=== PATIENT | male | born 1985 | race Caucasian/White ===

== ENCOUNTER 2016-08-21 | Outpatient (CLI) | END 2016-08-21 23:31 | CPT/HCPCS: A0425; A0428 ==

== ENCOUNTER 2016-08-21 | Outpatient (CLI) | END 2016-08-21 11:30 | disposition critical access hospital (66) | CPT/HCPCS: A0425; A0429 ==

== ENCOUNTER 2016-08-21 12:07 | Emergency (ER) | payer MEDICAID ==
[2016-08-21] MEDS ORDERED: HYDROcod/ACETAM 5/325 MG TABLET PO STA ×2 (13:58→20:53)
[2016-08-21] MEDS ORDERED: ONDANSETRON ODT 4 MG TABLET TL STA (13:58)
[2016-08-21] MEDS ORDERED: HYDROcod/ACETAM 5/325 MG TABLET ONE ×2 (14:05→20:55)
[2016-08-21] MEDS ORDERED: ONDANSETRON ODT 4 MG TABLET ONE (14:05)
[2016-08-21] MEDS ORDERED: CIPROFLOXACIN 250 MG TABLET PO STA (15:47)
[2016-08-21] MEDS ORDERED: IBUPROFEN 600 MG TABLET PO STA (20:53)
[2016-08-21] MEDS ORDERED: IBUPROFEN 600 MG TABLET PO ONE (20:55)
== END 2016-08-21 23:30 ==
DX: F20.0 Paranoid schizophrenia (principal); N30.01 Acute cystitis with hematuria; T43.4X6A Underdosing of butyrophenone and thiothixene neuroleptics, initial encounter; T43.596A Underdosing of other antipsychotics and neuroleptics, initial encounter; Z91.128 Patient's intentional underdosing of medication regimen for other reason; F32.9 Major depressive disorder, single episode, unspecified; F90.9 Attention-deficit hyperactivity disorder, unspecified type; Z87.11 Personal history of peptic ulcer disease
CPT/HCPCS: 36415; 74176; 80053; 80306; 80320; 81001; 83690; 85025; 87086; 99284; A9270; Q0162

== ENCOUNTER 2016-10-22 22:28 | Outpatient (CLI) | payer MEDICAID | END 2016-10-22 22:29 | disposition home or self-care (01) | DX: R31.9 Hematuria, unspecified (principal) ==

== ENCOUNTER 2016-11-16 15:04 | Emergency (ER) | payer MEDICAID ==
[2016-11-16] MEDS ORDERED: ALBUTEROL NEB 2.5 MG/3 ML INH STA (15:28)
[2016-11-16] MEDS ORDERED: oxyCOD/ACETAMIN 5 MG/325 MG TABLET PO STA (15:28)
[2016-11-16] MEDS ORDERED: SULFAMETH/TRIMETH DS 800/160 MG TABLET PO STA (15:28)
[2016-11-16] MEDS ORDERED: DEXAMETHASONE 10 MG/ML VIAL PO STA (15:28)
[2016-11-16] MEDS ORDERED: IBUPROFEN 800 MG TABLET PO STA (15:29)
[2016-11-16] MEDS ORDERED: DOXYCYCLINE 100 MG TABLET PO STA (15:30)
[2016-11-16] MEDS ORDERED: IBUPROFEN 800 MG TABLET PO ONE (15:34)
[2016-11-16] MEDS ORDERED: oxyCOD/ACETAMIN 5 MG/325 MG TABLET PO ONE (15:34)
[2016-11-16] MEDS ORDERED: DOXYCYCLINE 100 MG TABLET PO ONE (15:35)
[2016-11-16] MEDS ORDERED: DEXAMETHASONE 10 MG/ML VIAL ONE (15:35)
[2016-11-16] MEDS ORDERED: CHERRY SYRUP 10 ML UDC PO ONE (15:35)
[2016-11-16] MEDS ORDERED: ALBUTEROL NEB 2.5 MG/3 ML INH ONE (15:43)
== END 2016-11-16 16:15 | disposition home or self-care (01) ==
DX: S20.219A Contusion of unspecified front wall of thorax, initial encounter (principal); W11.XXXA Fall on and from ladder, initial encounter; Y92.019 Unspecified place in single-family (private) house as the place of occurrence of the external cause; J06.9 Acute upper respiratory infection, unspecified; H60.501 Unspecified acute noninfective otitis externa, right ear; J45.909 Unspecified asthma, uncomplicated; Z87.11 Personal history of peptic ulcer disease
CPT/HCPCS: 71020; 93005; 93010; 94640; 99283; 99284; A9270; J7613

== ENCOUNTER 2017-01-05 01:30 | Outpatient (CLI) | payer MEDICAID | END 2017-01-05 01:31 | disposition critical access hospital (66) | LOC: EMS 01:30 | PROVIDERS: ATTEND Surgery | DX: Z04.6 Encounter for general psychiatric examination, requested by authority (principal); R45.851 Suicidal ideations | CPT/HCPCS: A0425; A0429 ==

== ENCOUNTER 2017-01-05 01:59 | Emergency (ER) | payer MEDICAID ==
[2017-01-05 02:34] LABS: BASOPHILS # (AUTO) 0.2 10^3/uL (0.0-0.1); BASOPHILS % (AUTO) 2.3 %; EOSINOPHILS # (AUTO) 0.1 10^3/uL (0.0-0.7); EOSINOPHILS % (AUTO) 0.6 %; HCT - HEMATOCRIT 33.3 % (42.0-52.0); HGB - HEMOGLOBIN 11.4 g/dL (14.0-18.0); LYMPHOCYTES # (AUTO) 1.4 10^3/uL (1.5-3.5); LYMPHOCYTES % (AUTO) 13.4 %; MEAN CORPUSCULAR HEMOGLOBIN 31.4 pg (27.0-31.0); MEAN CORPUSCULAR HGB CONC 34.1 g/dL (32.0-36.0); MEAN CORPUSCULAR VOLUME 91.9 fL (80.0-94.0); MEAN PLATELET VOLUME 8.5 fL (7.4-11.4); MONOCYTES # (AUTO) 0.8 10^3/uL (0.0-1.0); MONOCYTES % (AUTO) 7.7 %; NEUTROPHILS # (AUTO) 7.7 10^3/uL (1.5-6.6); RED BLOOD COUNT 3.62 10^6/uL (4.70-6.10); RED CELL DISTRIBUTION WIDTH 13.8 % (12.0-15.0); UNCORRECTED WHITE BLOOD COUNT 10.2 x10^3/uL; WHITE BLOOD COUNT 10.2 x10^3/uL (4.8-10.8)
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
[2017-01-05] MEDS ORDERED: WATER FOR INJECTION,STERILE 10 ML ONE (02:36)
[2017-01-05] MEDS ORDERED: OLANZapine 10 MG VIAL IM ONE (02:36)
[2017-01-05 02:41] LABS: ALBUMIN/GLOBULIN RATIO 1.8 (1.0-2.2); BILIRUBIN,TOTAL 2.2 mg/dL (0.2-1.0); BUN - BLOOD UREA NITROGEN 26 mg/dL (6-20); CALCIUM 9.2 mg/dL (8.5-10.3); CARBON DIOXIDE - CO2 21 mmol/L (21-32); CHLORIDE 101 mmol/L (101-111); GFR - MDRD 86 (>89); GLUCOSE 81 mg/dL (70-100); LIPASE 24 U/L (22-51); POTASSIUM 3.2 mmol/L (3.5-5.0); SALICYLATE < 6.0 mg/dL; SODIUM 137 mmol/L (135-145); TOTAL PROTEIN 7.2 g/dL (6.7-8.2)
[2017-01-05 02:54] LABS: ACETAMINOPHEN < 10 ug/mL (10-30)
[2017-01-05] MEDS: OLANZapine 10 MG VIAL IM ONE (03:00)
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
[2017-01-05] MEDS ORDERED: OLANZapine ODT 5 MG TABLET TL ONE ×2 (10:24→13:18)
[2017-01-05] MEDS: OLANZapine ODT 5 MG TABLET TL ONE ×2 (10:26→13:20)
[2017-01-05] MEDS: POTASSIUM CHLORIDE 20 MEQ TABLET PO STA (12:04)
[2017-01-05] MEDS ORDERED: POTASSIUM CHLORIDE 20 MEQ TABLET PO ONE (12:05)
[2017-01-05] MEDS ORDERED: LORazepam 2 MG/ML SYRINGE ONE (13:51)
[2017-01-05] MEDS: LORazepam 2 MG/ML SYRINGE IM STA (13:54)
[2017-01-05 14:59] VITALS: BP 120/63
== END 2017-01-05 15:33 ==
LOC: EDUNIT# → ED 01:59
DX: F20.9 Schizophrenia, unspecified (principal); T50.996A Underdosing of other drugs, medicaments and biological substances, initial encounter; Z91.128 Patient's intentional underdosing of medication regimen for other reason; F31.9 Bipolar disorder, unspecified; J45.909 Unspecified asthma, uncomplicated; Z87.11 Personal history of peptic ulcer disease
CPT/HCPCS: 36415; 80053; 80306; 80307; 80320; 80329; 83690; 84443; 85025; 96372; 99285

== ENCOUNTER 2017-01-05 15:36 | Outpatient (CLI) | payer MEDICAID | END 2017-01-05 15:37 | LOC: EMS 15:36 | PROVIDERS: ATTEND Surgery | DX: F29 Unspecified psychosis not due to a substance or known physiological condition (principal) | CPT/HCPCS: A0425; A0428 ==

== ENCOUNTER 2017-09-02 15:42 | Emergency (ER) | payer MEDICAID ==
[2017-09-02 16:04] VITALS: BP 124/59
--- NOTE | 2017-09-02 16:29 | ED Physician Documentation ---
History of Present Illness - Stated complaint Stated Complaint: R FOOT PAIN - Chief complaint Chief Complaint: Trauma Ext - History obtained from History obtained from: Patient - History of Present Illness Timing: Today Pain level max: 8 Pain level now: 5 Improved by: rest Worsened by: walking - Additonal information Additional information: Patient is a 32-year-old male who states that he was walking and felt a pop in his right foot. Concerned that he broke his foot. Has not taken anything for the pain. Has continued to ambulate on the foot. Review of Systems Constitutional: denies: Fever Neurologic: denies: Focal weakness, Numbness PD PAST MEDICAL HISTORY - Past Medical History Cardiovascular: None Respiratory: Asthma Neuro: None Endocrine/Autoimmune: None GI: Ulcers : None HEENT: None Psych: Schizophrenia, ADD/ADHD, Post traumatic stress disorder, Claustrophobia, Other Musculoskeletal: None Derm: None - Past Surgical History Past Surgical History: Yes General: Hiatal hernia repair Ortho: ACL reconstruction HEENT: Tonsil/Adenoidectomy Derm: Skin cancer surgery - Present Medications Home Medications: Ambulatory Orders Medication Instructions Recorded Confirmed Ibuprofen [Motrin] 800 mg PO Q8H PRN #20 tablet 09/02/17 - Allergies Allergies/Adverse Reactions: Allergies Allergy/AdvReac Type Severity Reaction Status Date / Time iodine Allergy Unknown Itching Verified 09/02/17 16:20 - Social History Does the pt smoke?: No Smoking Status: Never smoker Does the pt drink ETOH?: No Does the pt have substance abuse?: No - Immunizations Immunizations are current?: No Immunizations: TDAP >10years/unknown - POLST Patient has POLST: No PD ED PE NORMAL - Vitals Vital signs reviewed: Yes - General General: Alert and oriented X 3, No acute distress - Derm Derm: Warm and dry - Extremities Extremities: Other (R foot - mild diffuse TTP. no point tenderness. nvi) - Neuro Neuro: Alert and oriented X 3 Results - Vitals Vitals: Vital Signs - 24 hr 09/02/17 16:01 Temperature 36.5 C Heart Rate 80 Respiratory 16 Rate Blood Pressure 124/59 L O2 Saturation 97 Oxygen O2 Source Room air - Rads (name of study) R foot xray Radiology: Prelim report reviewed, EMP read contemporaneously, See rad report ( Normal foot) PD MEDICAL DECISION MAKING - ED course Complexity details: reviewed results, considered differential, d/w patient ED course: Patient with a right foot sprain. No acute fractures on x-ray. Placed in a postoperative shoe for comfort and will place on nonsteroidal anti-inflammatory medications for home. Ambulating well in the emergency department. Neurovascularly intact. Patient counseled regarding signs and symptoms for which I believe and urgent re-evaluation would be necessary. Patient with good understanding of and agreement to plan and is comfortable going home at this time This document was made in part using voice recognition software. While efforts are made to proofread this document, sound alike and grammatical errors may occur. Departure - Departure Disposition: Home, Self Care Clinical Impression: Foot sprain Qualifiers: Encounter type: initial encounter Laterality: right Qualified Code(s): S93.601A - Unspecified sprain of right foot, initial encounter Condition: Good Instructions: ED Sprain Foot Follow-Up: Cherelle Vieyra PA-C [Primary Care Provider] - Within 1 week Prescriptions: Ibuprofen [Motrin] 800 mg PO Q8H PRN #20 tablet PRN Reason: PAIN &/OR FEVER Comments: Your x-ray is normal today. Wear the postoperative shoe as needed for comfort. Return if you worsen. Discharge Date/Time: 09/02/17 16:48
[2017-09-02] MEDS ORDERED: IBUPROFEN 800 MG TABLET PO STA (16:36)
--- NOTE | 2017-09-02 17:53 | XRAY Preliminary Report ---
Exam: XR FOOT 3 VIEW RT IMPRESSION: Soft tissue swelling without fracture [facility] SITE ID: [id number]
--- NOTE | 2017-09-02 17:53 | XRAY Report ---
EXAM: RIGHT FOOT RADIOGRAPHY EXAM DATE: 09/02/2017 04:32 PM. CLINICAL HISTORY: R foot pain. COMPARISON: None. TECHNIQUE: 3 views. FINDINGS: Bones: No acute fracture or destructive bony mallet. Joints: Normal. No subluxations. Soft Tissues: There is soft tissue swelling around the fifth metatarsal-phalangeal joint. IMPRESSION: Soft tissue swelling without fracture [facility] Referring Provider Line: [phone] SITE ID: [id number]
== END 2017-09-02 16:48 | disposition home or self-care (01) ==
LOC: ED 15:42
DX: S93.601A Unspecified sprain of right foot, initial encounter (principal); X58.XXXA Exposure to other specified factors, initial encounter; Y93.02 Activity, running
CPT/HCPCS: 73630; 99283; A9270

== ENCOUNTER 2017-10-29 15:33 | Outpatient (CLI) | payer MEDICAID ==
[2017-10-29 17:40] LABS: BASOPHILS % (AUTO) 0.3 %; EOSINOPHILS # (AUTO) 0.1 10^3/uL (0.0-0.7); EOSINOPHILS % (AUTO) 1.6 %; HGB - HEMOGLOBIN 11.9 g/dL (14.0-18.0); LYMPHOCYTES # (AUTO) 1.8 10^3/uL (1.5-3.5); LYMPHOCYTES % (AUTO) 31.4 %; MEAN CORPUSCULAR HEMOGLOBIN 30.3 pg (27.0-31.0); MEAN CORPUSCULAR HGB CONC 33.2 g/dL (32.0-36.0); MEAN CORPUSCULAR VOLUME 91.4 fL (80.0-94.0); MEAN PLATELET VOLUME 8.2 fL (7.4-11.4); MONOCYTES # (AUTO) 0.4 10^3/uL (0.0-1.0); MONOCYTES % (AUTO) 7.3 %; NEUTROPHILS # (AUTO) 3.4 10^3/uL (1.5-6.6); NEUTROPHILS % (AUTO) 59.4 %; PLT - PLATELET COUNT 212 10^3/uL (130-450); RED BLOOD COUNT 3.92 10^6/uL (4.70-6.10); RED CELL DISTRIBUTION WIDTH 14.1 % (12.0-15.0); WHITE BLOOD COUNT 5.7 x10^3/uL (4.8-10.8)
[2017-10-29 17:58] LABS: ALBUMIN 4.2 g/dL (3.2-5.5); ALBUMIN/GLOBULIN RATIO 1.6 (1.0-2.2); ALKALINE PHOSPHATASE 67 IU/L (42-121); ALT ALANINE AMINOTRANSFERASE 19 IU/L (10-60); AST ASPARTATE AMINOTRANSFERASE 22 IU/L (10-42); BILIRUBIN,TOTAL 0.4 mg/dL (0.2-1.0); BUN - BLOOD UREA NITROGEN 23 mg/dL (6-20); CALCIUM 8.9 mg/dL (8.5-10.3); CARBON DIOXIDE - CO2 26 mmol/L (21-32); CHLORIDE 103 mmol/L (101-111); CHOL/HDL RATIO 4.6 (<5.0); CHOLESTEROL 225 mg/dL; CREATININE 0.7 mg/dL (0.6-1.2); GFR - MDRD 129 (>89); GLUCOSE 118 mg/dL (70-100); HDL CHOLESTEROL 49 mg/dL; LDL CHOLESTEROL,CALCULATED 109 mg/dL; LDL/HDL RATIO 2.2 (<3.6); MAGNESIUM 2.1 mg/dL (1.7-2.8); SODIUM 138 mmol/L (135-145); TOTAL PROTEIN 6.9 g/dL (6.7-8.2); VLDL CHOLESTEROL 67 mg/dL
[2017-10-29 18:06] LABS: THYROID STIMULATING HORMONE 1.25 uIU/mL (0.34-5.60)
[2017-10-29 19:35] LABS: FERRITIN 40.2 ng/mL (23.9-336.2)
[2017-10-29 19:52] LABS: % IRON SATURATION 17 % (20-50); IRON 60 ug/dL (45-182); TOTAL IRON BINDING CAPACITY 347 ug/dL (250-450); TRANSFERRIN 248 mg/dL (180-329)
== END 2017-10-29 15:34 | disposition home or self-care (01) ==
LOC: LAB.F 15:33
PROVIDERS: ATTEND Physician Assistant Medical
DX: Z00.00 Encounter for general adult medical examination without abnormal findings (principal); R25.2 Cramp and spasm; D64.9 Anemia, unspecified
CPT/HCPCS: 36415; 80053; 80061; 82306; 82607; 82728; 83540; 83721; 83735; 84443; 84466; 85025

== ENCOUNTER 2018-01-15 06:24 | Outpatient (CLI) | payer MEDICAID | END 2018-01-15 06:25 | disposition critical access hospital (66) | LOC: EMS 06:24 | PROVIDERS: ATTEND Surgery | DX: R07.9 Chest pain, unspecified (principal) | CPT/HCPCS: A0425; A0427 ==

== ENCOUNTER 2018-01-15 07:01 | Emergency (ER) | payer MEDICAID ==
[2018-01-15] MEDS ORDERED: SODIUM CHLORIDE 0.9% 1,000 ML IV ONE (07:11)
--- NOTE | 2018-01-15 07:13 | ED Physician Documentation ---
History of Present Illness - Stated complaint Stated Complaint: CP - Additonal information Additional information: hx from pt 32 male to ER [facility] for chest pain states chest pain int since 1230 last night throbbing rad to back + SOA + NV no diaphoresis + cough no fever no leg swelling no hx CAD HTN HLD DM hx meth use - smoke not IVDA - states has not used since [facility] - but I dont know when that was he is very tired with mumbled speech and drooping eyelids Review of Systems Constitutional: denies: Fever, Chills Cardiac: reports: Chest pain / pressure. denies: Palpitations Respiratory: reports: Dyspnea, Cough GI: denies: Abdominal Pain, Nausea, Vomiting Musculoskeletal: denies: Extremity pain, Extremity swelling Endocrine: denies: Easy bruising / bleeding Immunocompromised: denies: Immunocompromised PD PAST MEDICAL HISTORY - Past Medical History Cardiovascular: None Respiratory: Asthma Endocrine/Autoimmune: None GI: Ulcers : None HEENT: None Psych: Schizophrenia, ADD/ADHD, Post traumatic stress disorder, Claustrophobia, Other Musculoskeletal: None Derm: None - Past Surgical History Past Surgical History: Yes General: Hiatal hernia repair Ortho: ACL reconstruction HEENT: Tonsil/Adenoidectomy Derm: Skin cancer surgery - Present Medications Home Medications: Ambulatory Orders Medication Instructions Recorded Confirmed Ibuprofen [Motrin] 800 mg PO Q8H PRN #20 tablet 09/02/17 ARIPiprazole [Aripiprazole] 15 mg DAILY 01/15/18 01/15/18 QUEtiapine [SEROquel] 25 mg QPM 01/15/18 01/15/18 traZODone [Desyrel] 50 mg DAILY 01/15/18 01/15/18 - Allergies Allergies/Adverse Reactions: Allergies Allergy/AdvReac Type Severity Reaction Status Date / Time povidone-iodine Allergy Itching Verified 01/15/18 09:04 [From Betadine] soap [From Betadine] Allergy Itching Verified 01/15/18 09:04 - Social History Does the pt smoke?: No Smoking Status: Never smoker Does the pt drink ETOH?: No Does the pt have substance abuse?: No - Immunizations Immunizations are current?: No Immunizations: TDAP >10years/unknown - POLST Patient has POLST: No PD ED PE NORMAL - Vitals Vital signs reviewed: Yes - General General: Other (alert cooperative answers questions very sleepy) - HEENT HEENT: Atraumatic, Other (dry MM with whitich material on lipds that looks like [place]/maalox) - Neck Neck: Supple, no meningeal sign - Cardiac Cardiac: RRR, No murmur - Respiratory Respiratory: No respiratory distress, Clear bilaterally - Abdomen Abdomen: Soft, Non tender - Derm Derm: Normal color - Extremities Extremities: No edema, No calf tenderness / cord - Neuro Neuro: Alert and oriented X 3 Results - Vitals Vitals: Vital Signs - 24 hr 01/15/18 01/15/18 01/15/18 07:13 07:33 07:34 Temperature 36.0 C L Heart Rate 91 89 Respiratory 16 16 Rate Blood Pressure 131/71 H 126/84 H Blood Pressure 140/80 H [Left] Blood Pressure 126/84 H [Right] O2 Saturation 99 99 01/15/18 01/15/18 08:00 09:06 Temperature Heart Rate 89 75 Respiratory 18 18 Rate Blood Pressure 153/80 H 137/86 H Blood Pressure [Left] Blood Pressure [Right] O2 Saturation 98 98 Oxygen O2 Source Room air - EKG (time done) 0710 Rate: Rate (enter#) (93) Rhythm: NSR Intervals: Normal [place] QRS: Normal Ischemia: Non specific changes (diffusely flat T waves) - Labs Labs: Laboratory Tests 01/15/18 01/15/18 01/15/18 08:00 08:00 08:00 WBC 6.5 RBC 3.58 L Hgb 11.2 L Hct 32.9 L MCV 91.8 MCH 31.3 H MCHC 34.0 RDW 14.7 Plt Count 184 MPV 7.4 Neut # 4.2 Lymph # 1.6 [place] # 0.6 Eos # 0.1 Baso # 0.0 Absolute Nucleated RBC 0.00 Nucleated RBC % 0.0 Sodium Potassium Chloride Carbon Dioxide Anion Gap BUN Creatinine Estimated GFR (MDRD) Glucose Calcium Total Bilirubin AST ALT Alkaline Phosphatase Troponin I < 0.04 Total Protein Albumin Globulin Albumin/Globulin Ratio Lipase Urine Opiates Screen NEGATIVE Ur Oxycodone Screen NEGATIVE Urine Methadone Screen NEGATIVE Ur Propoxyphene Screen NEGATIVE Ur Barbiturates Screen NEGATIVE Ur Tricyclics Screen POSITIVE H Ur Phencyclidine Scrn NEGATIVE Ur Amphetamine Screen POSITIVE H U Methamphetamines Scrn POSITIVE H U Benzodiazepines Scrn NEGATIVE Urine Cocaine Screen NEGATIVE U Cannabinoids Screen NEGATIVE Ethyl Alcohol 01/15/18 08:02 WBC RBC Hgb Hct MCV MCH MCHC RDW Plt Count MPV Neut # Lymph # [place] # Eos # Baso # Absolute Nucleated RBC Nucleated RBC % Sodium 138 Potassium 3.2 L Chloride 105 Carbon Dioxide 25 Anion Gap 8.0 BUN 12 Creatinine 0.8 Estimated GFR (MDRD) 111 Glucose 117 H Calcium 9.0 Total Bilirubin 1.0 AST 39 ALT 28 Alkaline Phosphatase 55 Troponin I Total Protein 7.0 Albumin 4.3 Globulin 2.7 Albumin/Globulin Ratio 1.6 Lipase 18 L Urine Opiates Screen Ur Oxycodone Screen Urine Methadone Screen Ur Propoxyphene Screen Ur Barbiturates Screen Ur Tricyclics Screen Ur Phencyclidine Scrn Ur Amphetamine Screen U Methamphetamines Scrn U Benzodiazepines Scrn Urine Cocaine Screen U Cannabinoids Screen Ethyl Alcohol < 5.0 - Rads (name of study) CXR Radiology: See rad report (bibasilar infiltrates cardiomegaly (but poor insp effort)) CTA chest abd pelvis Radiology: See rad report (no dissection, no pna) PD MEDICAL DECISION MAKING - ED course ED course: EKG s ischemia and trop neg after 6+ hr of sx PERC neg but cardiomegaly and wide mediastinum on CXR so need to consider dissection will get CTA aorta if neg plan to dc with tx for pna EMR states all to iodine - I spoke to pt - he has gotten localized "skin bumps" when betadine was applied to a wound - but has had an IV contrast scan without rxn before Departure - Departure Disposition: 01 Home, Self Care Clinical Impression: Chest pain Qualifiers: Chest pain type: unspecified Qualified Code(s): R07.9 - Chest pain, unspecified Instructions: ED Chest Pain Atypical Unkn Cause Comments: All your tests were reassuring It does not seem you have had a heart attack, pneumonia, a collapsed lung, a blood clot in your lung, an aneurysm or tear of your aorta. I am not sure what caused the pain I am not saying nothing is wrong but the tests in the ER are reassuring, you are feeling better, and I think it is safe for you to go home You are slightly anemic but that is not new Please follow up with your PMD. Please stop using meth Drink lots of fluids for the next few days because you appeared dehydrated
--- NOTE | 2018-01-15 07:50 | XRAY Preliminary Report ---
Exam: XR CHEST 2 VIEW X-RAY IMPRESSION: Cardiomegaly exaggerated by low lung volumes. Bibasilar infiltrate/atelectasis [facility] SITE ID: [id number]
--- NOTE | 2018-01-15 07:50 | XRAY Report ---
EXAM: CHEST RADIOGRAPHY EXAM DATE: 01/15/2018 07:31 AM. CLINICAL HISTORY: Chest pain soa cough. COMPARISON: 11/16/2016. TECHNIQUE: 2 views. FINDINGS: Lungs/Pleura: Bibasilar infiltrate, atelectasis. Calcified granuloma No pleural effusion. No pneumoth orax. Decreased volumes. Mediastinum: Cardiomegaly Other: None. IMPRESSION: Cardiomegaly exaggerated by low lung volumes. Bibasilar infiltrate/atelectasis [facility] Referring Provider Line: [phone] SITE ID: [id number]
[2018-01-15 08:02] LABS: MUDS CUTOFF CONCENTRATIONS CUTOFF CONC BELOW:
[2018-01-15 08:07] LABS: BASOPHILS % (AUTO) 0.2 %; EOSINOPHILS # (AUTO) 0.1 10^3/uL (0.0-0.7); EOSINOPHILS % (AUTO) 0.8 %; HGB - HEMOGLOBIN 11.2 g/dL (14.0-18.0); LYMPHOCYTES # (AUTO) 1.6 10^3/uL (1.5-3.5); LYMPHOCYTES % (AUTO) 25.1 %; MEAN CORPUSCULAR HEMOGLOBIN 31.3 pg (27.0-31.0); MEAN CORPUSCULAR VOLUME 91.8 fL (80.0-94.0); MEAN PLATELET VOLUME 7.4 fL (7.4-11.4); MONOCYTES # (AUTO) 0.6 10^3/uL (0.0-1.0); MONOCYTES % (AUTO) 8.9 %; NEUTROPHILS # (AUTO) 4.2 10^3/uL (1.5-6.6); PLT - PLATELET COUNT 184 10^3/uL (130-450); RED BLOOD COUNT 3.58 10^6/uL (4.70-6.10); RED CELL DISTRIBUTION WIDTH 14.7 % (12.0-15.0); WHITE BLOOD COUNT 6.5 x10^3/uL (4.8-10.8)
[2018-01-15 08:13] LABS: AMPHETAMINE SCREEN,URINE POSITIVE (NEGATIVE); BENZODIAZEPINES SCREEN, URINE NEGATIVE (NEGATIVE); COCAINE SCREEN URINE NEGATIVE (NEGATIVE); METHADONE SCREEN, URINE NEGATIVE (NEGATIVE); METHAMPHETAMINES SCREEN, URINE POSITIVE (NEGATIVE); OPIATE SCREEN, URINE NEGATIVE (NEGATIVE); OXYCODONE SCREEN, URINE NEGATIVE (NEGATIVE); PROPOXYPHENE SCREEN, URINE NEGATIVE (NEGATIVE); TRICYCLIC ANTIDEPRESSANT,URINE POSITIVE (NEGATIVE)
[2018-01-15 08:18] LABS: ALBUMIN 4.3 g/dL (3.2-5.5); ALBUMIN/GLOBULIN RATIO 1.6 (1.0-2.2); ALKALINE PHOSPHATASE 55 IU/L (42-121); ALT ALANINE AMINOTRANSFERASE 28 IU/L (10-60); AST ASPARTATE AMINOTRANSFERASE 39 IU/L (10-42); BUN - BLOOD UREA NITROGEN 12 mg/dL (6-20); CARBON DIOXIDE - CO2 25 mmol/L (21-32); CHLORIDE 105 mmol/L (101-111); CREATININE 0.8 mg/dL (0.6-1.2); GFR - MDRD 111 (>89); GLUCOSE 117 mg/dL (70-100); LIPASE 18 U/L (22-51); SODIUM 138 mmol/L (135-145)
[2018-01-15] MEDS ORDERED: IOPAMIDOL-300 100 ML VIAL ONE (08:56)
--- NOTE | 2018-01-15 09:57 | CT Report ---
EXAM: CT ANGIOGRAM ABDOMEN AND PELVIS WITH CONTRAST EXAM DATE: 01/15/2018 09:37 AM. CLINICAL HISTORY: Cp rad to back wide mediastinum. COMPARISONS: None. TECHNIQUE: Routine helical CT angiogram imaging was performed through the abdomen and pelvis in the a rterial phase. IV contrast: 100 cc Isovue-300. Enteric contrast: No. Reconstructions: Coronal, sagitt al, and 3D MIP reconstructions. In accordance with CT protocol optimization, one or more of the following dose reduction techniques w ere utilized for this exam: automated exposure control, adjustment of mA and/or KV based on patient s ize, or use of iterative reconstructive technique. FINDINGS: Vasculature: Normal. No aneurysm, dissection, or significant atherosclerotic disease of the abdominal aorta and iliac arteries. The visualized mesenteric and solid organ vascular structures are also wit hin normal limits. Lung Bases: Please see dedicated chest CT performed concurrently. Abdominal Solid Organs: The liver, spleen, pancreas, adrenal glands, and kidneys demonstrate no signi ficant abnormality. Gallbladder: Unremarkable. Peritoneal Cavity: No ascites or pneumoperitoneum. No bowel obstruction or abnormal stool burden. Nor mal appendix. Pelvic Organs: The urinary bladder and visualized pelvic organs demonstrate no significant abnormalit y. Bones: No significant abnormality. Other: None. IMPRESSION: Normal abdomen and pelvis CT angiogram. No aneurysm or dissection. [facility] Referring Provider Line: [phone] SITE ID: [id number]
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
--- NOTE | 2018-01-15 09:58 | CT Preliminary Report ---
Exam: CT CHEST ANGIO (AORTA) IMPRESSION: The study was performed non-gated evaluation of the aortic root is limited. Within this limitation, n ormal chest CT angiogram. No aneurysm or dissection. [facility] SITE ID: [id number]
[2018-01-15] MEDS ORDERED: POTASSIUM BICARB 25 MEQ TABLET PO STA (10:09)
[2018-01-15 10:53] VITALS: BP 148/78
[2018-01-15] MEDS ORDERED: IOPAMIDOL-300 100 ML VIAL IVP ONE (11:35)
== END 2018-01-15 10:10 | disposition home or self-care (01) ==
LOC: EDUNIT# → ED 07:01
DX: R07.9 Chest pain, unspecified (principal); J45.909 Unspecified asthma, uncomplicated; Z87.11 Personal history of peptic ulcer disease
CPT/HCPCS: 36415; 71046; 71275; 74174; 80053; 80306; 80320; 83690; 84484; 85025; 93005; 96360; 99283; 99284; Q9967

== ENCOUNTER 2018-03-22 09:15 | Outpatient (CLI) | payer OTHER, MEDICAID | END 2018-03-22 09:16 | disposition critical access hospital (66) | LOC: EMS 09:15 | PROVIDERS: ATTEND Surgery | DX: S71.112A Laceration without foreign body, left thigh, initial encounter (principal); V28.4XXA Motorcycle driver injured in noncollision transport accident in traffic accident, initial encounter; Y92.410 Unspecified street and highway as the place of occurrence of the external cause | CPT/HCPCS: A0425; A0427; A0999 ==

== ENCOUNTER 2018-03-22 09:53 | Inpatient (IN) | payer OTHER, MEDICAID ==
[2018-03-22] MEDS ORDERED: MORPHINE 2 MG/ML SYRINGE IVP STA ×5 (10:03→14:20)
[2018-03-22] MEDS ORDERED: ONDANSETRON 4 MG/2 ML VIAL IVP STA (10:03)
[2018-03-22] MEDS ORDERED: SODIUM CHLORIDE 0.9% 1,000 ML IV ONE (10:03)
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
[2018-03-22] MEDS ORDERED: BUPIVACAINE 0.5%-EPI 1:200000 PF 30 ML VIAL SUBQ ONE (11:34)
[2018-03-22] MEDS ORDERED: LORazepam 2 MG/ML VIAL IVP STA (11:40)
[2018-03-22] MEDS ORDERED: BUPIVACAINE 0.5%-EPI 1:200000 PF 10 ML VIAL SUBQ STA ×2 (11:47→11:55)
[2018-03-22] MEDS: ceFAZolin 2 GM/50 ML 2 GM/50 ML BAG IV SCH ×2 (12:35→20:54)
[2018-03-22] MEDS ORDERED: IOPAMIDOL-300 100 ML VIAL ONE (12:44)
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
[2018-03-22] MEDS ORDERED: IOPAMIDOL-300 100 ML VIAL IVP ONE (13:42)
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
[2018-03-22] MEDS ORDERED: MORPHINE 10 MG/ML VIAL IVP STA (14:15)
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
[2018-03-22] MEDS ORDERED: LACTATED RINGERS 1,000 ML IV ONE ×2 (14:41→15:56)
[2018-03-22] MEDS ORDERED: fentaNYL 100 MCG/2 ML VIAL IVP ONE (15:00)
[2018-03-22] MEDS ORDERED: LIDOCAINE-MPF 2% 5 ML VIAL IM ONE (15:00)
[2018-03-22] MEDS ORDERED: VANCOMYCIN INJ 2 GM in SODIUM CHLORIDE 0.9% 500 ML IV ONE (15:00)
[2018-03-22] MEDS ORDERED: ONDANSETRON 4 MG/2 ML VIAL IVP ONE (15:00)
[2018-03-22] MEDS ORDERED: PROPOFOL 200 MG/20 ML VIAL IVP ONE (15:00)
[2018-03-22] MEDS ORDERED: DEXAMETHASONE 4 MG/ML VIAL IVP ONE (15:00)
[2018-03-22] MEDS ORDERED: KETOROLAC 30 MG/ML VIAL IVP ONE (15:00)
[2018-03-22] MEDS ORDERED: MIDAZOLAM 2 MG/2 ML VIAL IVP ONE (15:00)
[2018-03-22 15:04] LABS: BASOPHILS % (AUTO) 0.2 %; EOSINOPHILS % (AUTO) 0.2 %; HGB - HEMOGLOBIN 11.2 g/dL (14.0-18.0); LYMPHOCYTES # (AUTO) 1.4 10^3/uL (1.5-3.5); MEAN CORPUSCULAR HEMOGLOBIN 31.3 pg (27.0-31.0); MEAN CORPUSCULAR HGB CONC 33.6 g/dL (32.0-36.0); MEAN CORPUSCULAR VOLUME 92.9 fL (80.0-94.0); MEAN PLATELET VOLUME 7.9 fL (7.4-11.4); MONOCYTES # (AUTO) 0.9 10^3/uL (0.0-1.0); MONOCYTES % (AUTO) 7.5 %; NEUTROPHILS # (AUTO) 9.2 10^3/uL (1.5-6.6); NEUTROPHILS % (AUTO) 80.1 %; PLT - PLATELET COUNT 192 10^3/uL (130-450); RED BLOOD COUNT 3.57 10^6/uL (4.70-6.10); RED CELL DISTRIBUTION WIDTH 14.2 % (12.0-15.0); WHITE BLOOD COUNT 11.5 x10^3/uL (4.8-10.8)
[2018-03-22 15:12] LABS: CALCIUM 8.8 mg/dL (8.5-10.3); CREATININE 0.7 mg/dL (0.6-1.2)
[2018-03-22] MEDS ORDERED: BUPIVACAINE 0.25% PF 30 ML VIAL ONE (15:34)
--- NOTE | 2018-03-22 16:16 | OPERATIVE REPORT ---
Operative Report - General Procedure Date: 03/22/18 Planned Procedure: Debridement and irrigation left knee and exploration of left knee Pre-Op Diagnosis: Open left knee wound Procedure Performed: Debridement and irrigation left knee and exploration of left knee wound. The patient was taken to the OR and general anesthesia was induced. A tourniquet was placed on the proximal aspect of the patient's left thigh. As we began to prep the leg it was noted that there were multiple pieces of gravel in the leg in the subcutaneous tissue and that there was gross contamination with grass. There was a degloving injury to the soft tissues that extended [address] the shaft of the tibia. The wound was debrided after prepping and draping. We removed spoonfuls of gravel. A T shaped incision was formulated with the transverse part of the T as the original wound. The Hydrophi Simpulse irrigation system was used to irrigate the wound. 4 liters of NS was used to get the gross debris out of the wound and then debridement of the beltran colored soft tissue was accomplished. The Hydrophi simpulse was then used to irrigate another 2 liters of saline. The subcutaneous tissue was closed with 0 vicryl pop off sutures. The skin was closed with skin clips over a 1/3 hemovac drain. 1/4 % Marcaine was injected into the wound. The wound was dressed and the limb was placed in a knee immobilizer. At the end of the procedure all sponge and needle counts were correct x 2. No complications. EBL was 150 cc. The patient was then awakened and returned to the RR in stable condition. Post Op Diagnosis: Same - Procedure Note Primary Surgeon: Blair Anesthesia Technique: General ET tube IV Fluids (mL): 250 Estimated Blood Loss (mL): 150 Drain/Tube Type: Hemovac Complications: None.
[2018-03-22] MEDS ORDERED: BISACODYL 10 MG SUPP PR PRN (16:18)
[2018-03-22] MEDS ORDERED: ONDANSETRON 4 MG/2 ML VIAL IVP PRN (16:18)
[2018-03-22] MEDS ORDERED: diphenhydrAMINE 25 MG CAPSULE PO PRN (16:18)
[2018-03-22] MEDS ORDERED: BISACODYL 5 MG TABLET PO PRN (16:18)
[2018-03-22] MEDS ORDERED: PROCHLORPERAZINE 10 MG/2 ML VIAL IVP PRN (16:18)
[2018-03-22] MEDS ORDERED: ACETAMINOPHEN 325 MG TABLET PO PRN (16:18)
[2018-03-22] MEDS ORDERED: TEMAZEPAM 15 MG CAPSULE PO PRN (16:18)
[2018-03-22] MEDS ORDERED: diphenhydrAMINE INJ 50 MG/ML VIAL IVP PRN (16:18)
[2018-03-22] MEDS ORDERED: DOCUSATE SODIUM 100 MG CAPSULE PO PRN (16:18)
[2018-03-22] MEDS: HYDROmorphone 1 MG/ML CARPUJECT IVP PRN ×3 (16:35→16:50)
[2018-03-22] MEDS: SODIUM CHLORIDE FLUSH 0.9% 10 ML SYRINGE IVP SCH (17:34)
[2018-03-22] MEDS ORDERED: SODIUM CHLORIDE 0.9% 500 ML IV ONE (17:53)
[2018-03-22] MEDS: CLINDAMYCIN 600 MG/50 ML 50 ML IV SCH (17:58)
[2018-03-22] MEDS ORDERED: NALOXONE 0.4 MG/ML VIAL IVP PRN (18:31)
[2018-03-22] MEDS: ACETAMINOPHEN 1,000 MG/100 ML 100 ML IV PRN (18:41)
[2018-03-22] MEDS: QUEtiapine 25 MG TABLET PO SCH (20:55)
[2018-03-22] MEDS: SODIUM CHLORIDE FLUSH 0.9% 10 ML SYRINGE IVP PRN (20:56)
[2018-03-22] MEDS: oxyCOD/ACETAMIN 5 MG/325 MG TABLET PO PRN (22:11)
[2018-03-23] MEDS: ACETAMINOPHEN 1,000 MG/100 ML 100 ML IV PRN (00:12)
[2018-03-23] MEDS: CLINDAMYCIN 600 MG/50 ML 50 ML IV SCH (00:13)
[2018-03-23] MEDS: SODIUM CHLORIDE FLUSH 0.9% 10 ML SYRINGE IVP SCH ×3 (01:25→16:32)
[2018-03-23] MEDS: oxyCOD/ACETAMIN 5 MG/325 MG TABLET PO PRN ×5 (03:33→20:32)
[2018-03-23] MEDS: ceFAZolin 2 GM/50 ML 2 GM/50 ML BAG IV SCH ×3 (04:16→20:32)
[2018-03-23 08:10] LABS: HGB - HEMOGLOBIN 10.2 g/dL (14.0-18.0); MEAN CORPUSCULAR HEMOGLOBIN 31.1 pg (27.0-31.0); MEAN CORPUSCULAR HGB CONC 33.4 g/dL (32.0-36.0); MEAN PLATELET VOLUME 8.2 fL (7.4-11.4); RED BLOOD COUNT 3.28 10^6/uL (4.70-6.10); RED CELL DISTRIBUTION WIDTH 14.5 % (12.0-15.0); WHITE BLOOD COUNT 8.1 x10^3/uL (4.8-10.8)
[2018-03-23] MEDS: ENOXAPARIN 40 MG/0.4 ML SYRINGE SUBQ SCH (08:25)
[2018-03-23 08:27] LABS: CALCIUM 8.3 mg/dL (8.5-10.3); CREATININE 0.8 mg/dL (0.6-1.2)
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
[2018-03-23] MEDS ORDERED: ARIPiprazole 5 MG TABLET PO SCH (09:00)
[2018-03-23] MEDS ORDERED: traZODone 50 MG TABLET PO SCH (09:00)
[2018-03-23] MEDS: KETOROLAC 30 MG/ML VIAL IVP PRN ×2 (11:46→17:53)
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
--- NOTE | 2018-03-23 13:53 | PROVIDER PROGRESS NOTE ---
Subjective - Prog Note Date Prog Note Date: 03/23/18 Prog Note Time: 13:52 - Subjective Pt reports feeling: Improved Objective - Vital Signs/Intake & Output Vital Signs: Vital Signs x48h Temp Pulse Pulse Resp BP BP Pulse Ox 03/23/18 11:57 36.8 C 58 L 21 118/61 97 03/23/18 11:13 66 119/61 03/23/18 11:10 66 119/61 03/23/18 08:26 36.6 C 60 20 120/62 97 03/23/18 06:02 36.6 C 60 16 115/46 L 95 Intake & Output: Intake & Output 03/20/18 03/21/18 03/22/18 03/23/18 23:59 23:59 23:59 23:59 Intake Total 700 1445 Output Total 210 1600 Balance 490 -155 - Objective General Appearance: positive: No acute distress Extremities: positive: Other (Dressing dry. Drain with minimal output) - Lab Results Fish Bones: 03/23/18 08:00 03/23/18 08:00 Other Labs: Lab Results x24hrs 03/23/18 03/23/18 Range/Units 08:00 08:00 WBC 8.1 (4.8-10.8) x10^3/uL RBC 3.28 L (4.70-6.10) 10^6/uL Hgb 10.2 L (14.0-18.0) g/dL Hct 30.5 L (42.0-52.0) % MCV 93.0 (80.0-94.0) fL MCH 31.1 H (27.0-31.0) pg MCHC 33.4 (32.0-36.0) g/dL RDW 14.5 (12.0-15.0) % Plt Count 165 (130-450) 10^3/uL MPV 8.2 (7.4-11.4) fL Sodium 134 L (135-145) mmol/L Potassium 3.6 (3.5-5.0) mmol/L Chloride 103 (101-111) mmol/L Carbon Dioxide 26 (21-32) mmol/L Anion Gap 5.0 L (6-13) BUN 15 (6-20) mg/dL Creatinine 0.8 (0.6-1.2) mg/dL Estimated GFR (MDRD) 111 (>89) Glucose 118 H (70-100) mg/dL Calcium 8.3 L (8.5-10.3) mg/dL Assessment/Plan - Problem List (1) Knee injury Impression: Will change the dressing and remove the drain tomorrow. Continue PT. Qualifiers: Encounter type: initial encounter Laterality: left Qualified Code(s): S89.92XA - Unspecified injury of left lower leg, initial encounter
--- NOTE | 2018-03-23 17:29 | PROVIDER PROGRESS NOTE ---
Subjective - Prog Note Date Prog Note Date: 03/23/18 Prog Note Time: 17:25 - Subjective Subjective: Patient is mentally ill, schizophrenic and oppositional. He denies any fevers, chills, shortness of breath or any other new problems. Current Medications - Current Medications Current Medications: Active Medications Generic Name Dose Route Start Last Admin Trade Name Freq PRN Reason Stop Dose Admin Acetaminophen 650 - 975 mg 03/22/18 16:18 Tylenol PO Q4HR PRN PAIN Hydrocodone Bitart/Acetaminophen 1 tab 03/22/18 16:18 [place] 5/325 PO Q4HR PRN PAIN Bisacodyl 10 mg 03/22/18 16:18 Dulcolax PO Q12H PRN Constipation Bisacodyl 10 mg 03/22/18 16:18 Dulcolax Supp [place] Q12H PRN Constipation Diphenhydramine HCl 25 mg 03/22/18 16:18 Benadryl PO Q6H PRN ITCHING Diphenhydramine HCl 25 mg 03/22/18 16:18 Benadryl Inj IVP Q6H PRN ITCHING Docusate Sodium 100 mg 03/22/18 16:18 Colace 100mg Capsule PO BID PRN Constipation Enoxaparin Sodium 40 mg 03/23/18 09:00 03/23/18 08:25 Lovenox SUBQ Not Given DAILY [facility] Hydromorphone HCl 1 mg 03/22/18 16:18 03/22/18 16:50 Dilaudid Inj Carp IVP 0.2 mg Q2HR PRN Administration Breakthrough Pain Cefazolin Sodium/Dextrose 2 gm in 50 mls @ 100 mls/hr 03/22/18 12:30 14:13 Ancef 2 Gm/50 Ml IV Infused Q8H [facility]N Infusion Acetaminophen 100 mls @ 400 mls/hr 03/22/18 16:18 03/23/18 00:27 Ofirmev IV Infused Q6HR PRN Infusion PAIN Ketorolac Tromethamine 30 mg 03/23/18 11:34 03/23/18 11:46 Toradol Inj (30mg) IVP 03/28/18 11:33 30 mg Q6HR PRN Administration PAIN Naloxone HCl 0.4 mg 03/22/18 18:31 Narcan IVP 04/21/18 18:30 ONCE PRN Shortness of Air/Wheezing Ondansetron HCl 4 mg 03/22/18 16:18 Zofran Inj IVP Q6HR PRN Nausea / Vomiting Oxycodone/Acetaminophen 1 tab 03/22/18 16:18 03/23/18 16:32 Percocet 5 Mg/325 Mg PO 1 tab Q4HR PRN Administration PAIN Prochlorperazine Edisylate 10 mg 03/22/18 16:18 Compazine Inj IVP Q6HR PRN Nausea / Vomiting Quetiapine Fumarate 25 mg 03/22/18 21:00 03/22/18 20:55 Seroquel PO 25 mg QPM H[facility]N Administration Sodium Chloride 10 ml 03/22/18 17:00 03/23/18 16:32 Normal Saline Flush 0.9% IVP 10 ml 0100,0900,1700 [facility] Administration Sodium Chloride 10 ml 03/22/18 16:18 03/22/18 20:56 Normal Saline Flush 0.9% IVP 10 ml PRN PRN Administration NEEDED PER PROVIDER ORDERS Temazepam 15 mg 03/22/18 16:18 03/23/18 00:12 Restoril PO 15 mg QPM PRN Administration Insomnia Trazodone HCl 50 mg 03/23/18 21:00 Desyrel PO QPM [facility] ARIPiprazole [Aripiprazole] 15 mg DAILY 01/15/18 QUEtiapine [SEROquel] 25 mg PO QPM PRN 01/15/18 traZODone [Desyrel] 50 mg DAILY 01/15/18 Cholecalciferol (Vitamin D3) [Vitamin D3] 4,000 unit PO DAILY 03/23/18 Quetiapine Fumarate [Quetiapine Fumarate ER] 800 mg PO QPM 03/23/18 Objective - Vital Signs/Intake & Output Reviewed Vital Signs: Yes Vital Signs: Vital Signs x48h Temp Pulse Pulse Resp BP BP Pulse Ox 03/23/18 15:32 37.3 C 81 20 129/88 H 98 03/23/18 11:57 36.8 C 58 L 21 118/61 97 03/23/18 11:13 66 119/61 03/23/18 11:10 66 119/61 Intake & Output: Intake & Output 03/20/18 03/21/18 03/22/18 03/23/18 23:59 23:59 23:59 23:59 Intake Total 700 1510 Output Total 210 1600 Balance 490 -90 - Objective General Appearance: positive: No acute distress, Alert Eyes Bilateral: positive: Normal inspection, PERRL, EOMI, No lid inflammation, Conjunctivae nml, No scleral icterus ENT: positive: ENT inspection nml, Pharynx nml, No signs of dehydration Neck: positive: Nml inspection, Thyroid nml, No JVD, Trachea midline. negative : Thyromegaly Respiratory: positive: Chest non-tender, No respiratory distress, Breath sounds nml. negative: Wheezes, Rales, Rhonchi Cardiovascular: positive: Regular rate & rhythm, No murmur, No gallop Abdomen: positive: Non-tender, No organomegaly, Nml bowel sounds, No distention. negative: Guarding, Rebound Back: positive: Nml inspection. negative: CVA tenderness (R), CVA tenderness (L ) Skin: positive: Color nml, No rash, Warm, Dry. negative: Cyanosis Extremities: positive: Non-tender, Full ROM, Nml appearance, No pedal edema Neurologic/Psychiatric: positive: Oriented x3, CN's nml (2-12), Motor nml, Sensation nml. negative: Mood/affect nml - Lab Results Fish Bones: 03/23/18 08:00 03/23/18 08:00 Other Labs: Lab Results x24hrs 03/23/18 03/23/18 Range/Units 08:00 08:00 WBC 8.1 (4.8-10.8) x10^3/uL RBC 3.28 L (4.70-6.10) 10^6/uL Hgb 10.2 L (14.0-18.0) g/dL Hct 30.5 L (42.0-52.0) % MCV 93.0 (80.0-94.0) fL MCH 31.1 H (27.0-31.0) pg MCHC 33.4 (32.0-36.0) g/dL RDW 14.5 (12.0-15.0) % Plt Count 165 (130-450) 10^3/uL MPV 8.2 (7.4-11.4) fL Sodium 134 L (135-145) mmol/L Potassium 3.6 (3.5-5.0) mmol/L Chloride 103 (101-111) mmol/L Carbon Dioxide 26 (21-32) mmol/L Anion Gap 5.0 L (6-13) BUN 15 (6-20) mg/dL Creatinine 0.8 (0.6-1.2) mg/dL Estimated GFR (MDRD) 111 (>89) Glucose 118 H (70-100) mg/dL Calcium 8.3 L (8.5-10.3) mg/dL ABX Reporting Has patient been on IV antibiotics over the past 48 hours?: Yes Assessment/Plan - Problem List (1) Knee injury Impression: The patient had the knee injury surgically repaired by Dr. Pinto. She is managing the patient's pain management and antibiotics. The patient's toes are warm with good capillary refill. The dressing is dry and intact with minimal drainage. Qualifiers: Encounter type: initial encounter Laterality: left Qualified Code(s): S89.92XA - Unspecified injury of left lower leg, initial encounter (2) Schizophrenia Impression: Patient has a history of schizophrenia, ADHD, PTSD, and claustrophobia. He has been restarted on his Abilify, Seroquel, and trazodone. He is uncooperative and oppositional and a poor historian.
[2018-03-23] MEDS: SODIUM CHLORIDE FLUSH 0.9% 10 ML SYRINGE IVP PRN ×2 (17:53→20:33)
[2018-03-23] MEDS: QUEtiapine 25 MG TABLET PO SCH (20:32)
[2018-03-23] MEDS: traZODone 50 MG TABLET PO SCH (21:27)
[2018-03-24] MEDS: SODIUM CHLORIDE FLUSH 0.9% 10 ML SYRINGE IVP SCH ×3 (00:06→13:56)
[2018-03-24] MEDS: KETOROLAC 30 MG/ML VIAL IVP PRN ×2 (00:07→10:55)
[2018-03-24] MEDS: SODIUM CHLORIDE FLUSH 0.9% 10 ML SYRINGE IVP PRN ×2 (04:20→10:55)
[2018-03-24] MEDS: ceFAZolin 2 GM/50 ML 2 GM/50 ML BAG IV SCH (04:20)
[2018-03-24 06:28] LABS: HGB - HEMOGLOBIN 10.5 g/dL (14.0-18.0); MEAN CORPUSCULAR HEMOGLOBIN 31.6 pg (27.0-31.0); MEAN CORPUSCULAR HGB CONC 33.7 g/dL (32.0-36.0); MEAN CORPUSCULAR VOLUME 93.7 fL (80.0-94.0); MEAN PLATELET VOLUME 8.1 fL (7.4-11.4); RED BLOOD COUNT 3.31 10^6/uL (4.70-6.10); RED CELL DISTRIBUTION WIDTH 14.4 % (12.0-15.0); WHITE BLOOD COUNT 7.6 x10^3/uL (4.8-10.8)
[2018-03-24 06:34] LABS: CALCIUM 8.6 mg/dL (8.5-10.3); CREATININE 0.8 mg/dL (0.6-1.2)
[2018-03-24] MEDS: oxyCOD/ACETAMIN 5 MG/325 MG TABLET PO PRN ×4 (06:46→20:11)
[2018-03-24] MEDS ORDERED: POTASSIUM CHLORIDE 20 MEQ TABLET PO SCH (08:33)
[2018-03-24] MEDS: ENOXAPARIN 40 MG/0.4 ML SYRINGE SUBQ SCH (08:58)
[2018-03-24] MEDS: CLINDAMYCIN 600 MG/50 ML 50 ML IV SCH ×2 (13:52→21:57)
[2018-03-24] MEDS: SACCHAROMYCES BOULARDII 250 MG CAPSULE PO SCH ×2 (13:52→16:11)
--- NOTE | 2018-03-24 15:34 | PROVIDER PROGRESS NOTE ---
Subjective - Prog Note Date Prog Note Date: 03/24/18 - Subjective Pt reports feeling: Worse (Schizophrenia worse today) Objective - Vital Signs/Intake & Output Vital Signs: Vital Signs x48h Temp Pulse Resp BP Pulse Ox 03/24/18 12:45 37.1 C 81 18 121/61 96 03/24/18 08:48 37.3 C 82 18 126/65 95 Intake & Output: Intake & Output 03/21/18 03/22/18 03/23/18 03/24/18 23:59 23:59 23:59 23:59 Intake Total 700 2420 1400 Output Total 210 1875 700 Balance 490 545 700 - Objective Extremities: positive: Other (Drain pulled. Dressing dry. No real swelling in leg) - Lab Results Fish Bones: 03/24/18 06:17 03/24/18 06:17 Other Labs: Lab Results x24hrs 03/24/18 03/24/18 Range/Units 06:17 06:17 WBC 7.6 (4.8-10.8) x10^3/uL RBC 3.31 L (4.70-6.10) 10^6/uL Hgb 10.5 L (14.0-18.0) g/dL Hct 31.0 L (42.0-52.0) % MCV 93.7 (80.0-94.0) fL MCH 31.6 H (27.0-31.0) pg MCHC 33.7 (32.0-36.0) g/dL RDW 14.4 (12.0-15.0) % Plt Count 164 (130-450) 10^3/uL MPV 8.1 (7.4-11.4) fL Sodium 138 (135-145) mmol/L Potassium 3.3 L (3.5-5.0) mmol/L Chloride 106 (101-111) mmol/L Carbon Dioxide 25 (21-32) mmol/L Anion Gap 7.0 (6-13) BUN 19 (6-20) mg/dL Creatinine 0.8 (0.6-1.2) mg/dL Estimated GFR (MDRD) 111 (>89) Glucose 123 H (70-100) mg/dL Calcium 8.6 (8.5-10.3) mg/dL Assessment/Plan - Problem List (1) Knee injury Impression: Plan to continue antibiotics for about a week IV. Qualifiers: Encounter type: initial encounter Laterality: left Qualified Code(s): S89.92XA - Unspecified injury of left lower leg, initial encounter
--- NOTE | 2018-03-24 17:00 | PROVIDER PROGRESS NOTE ---
Subjective - Prog Note Date Prog Note Date: 03/24/18 - Subjective Pt reports feeling: No change Subjective: pt report his leg pain is good controlled. Pt denies fever, chill, CP, SOB. Current Medications - Current Medications Current Medications: Active Medications Acetaminophen (Tylenol) 650 - 975 mg PO Q4HR PRN PRN Reason: PAIN Hydrocodone Bitart/Acetaminophen ([place] 5/325) 1 tab PO Q4HR PRN PRN Reason: PAIN Bisacodyl (Dulcolax) 10 mg PO Q12H PRN PRN Reason: Constipation Bisacodyl (Dulcolax Supp) 10 mg [place] Q12H PRN PRN Reason: Constipation Cholecalciferol (Vitamin D3) 5,000 unit PO DAILY [facility] Diphenhydramine HCl (Benadryl) 25 mg PO Q6H PRN PRN Reason: ITCHING Diphenhydramine HCl (Benadryl Inj) 25 mg IVP Q6H PRN PRN Reason: ITCHING Docusate Sodium (Colace 100mg Capsule) 100 mg PO BID PRN PRN Reason: Constipation Enoxaparin Sodium (Lovenox) 40 mg SUBQ DAILY [facility] Last Admin: 03/24/18 08:58 Dose: 40 mg Hydromorphone HCl (Dilaudid Inj Carp) 1 mg IVP Q2HR PRN PRN Reason: Breakthrough Pain Last Admin: 03/22/18 16:50 Dose: 0.2 mg Acetaminophen (Ofirmev) 100 mls @ 400 mls/hr IV Q6HR PRN PRN Reason: PAIN Last Infusion: 03/23/18 00:27 Dose: Infused Clindamycin Phosphate (Cleocin 600 Mg/50 Ml) 50 mls @ 100 mls/hr IV Q8H [facility] Last Infusion: 03/24/18 14:43 Dose: Infused Ketorolac Tromethamine (Toradol Inj (30mg)) 30 mg IVP Q6HR PRN PRN Reason: PAIN Stop: 03/28/18 11:33 Last Admin: 03/24/18 10:55 Dose: 30 mg Naloxone HCl (Narcan) 0.4 mg IVP ONCE PRN PRN Reason: Shortness of Air/Wheezing Stop: 04/21/18 18:30 Ondansetron HCl (Zofran Inj) 4 mg IVP Q6HR PRN PRN Reason: Nausea / Vomiting Oxycodone/Acetaminophen (Percocet 5 Mg/325 Mg) 1 tab PO Q4HR PRN PRN Reason: PAIN Last Admin: 03/24/18 16:10 Dose: 1 tab Prochlorperazine Edisylate (Compazine Inj) 10 mg IVP Q6HR PRN PRN Reason: Nausea / Vomiting Quetiapine Fumarate (Seroquel) 25 mg PO QPM [facility] Last Admin: 03/23/18 20:32 Dose: 25 mg Quetiapine Fumarate (Seroquel) 500 mg PO QPM [facility] Quetiapine Fumarate (Seroquel) 300 mg PO DAILY [facility] Saccharomyces Boulardii (Florastor) 500 mg PO BIDWM [facility] Last Admin: 03/24/18 16:11 Dose: 500 mg Sodium Chloride (Normal Saline Flush 0.9%) 10 ml IVP 0100,0900,1700 [facility] Last Admin: 03/24/18 13:56 Dose: 20 ml Sodium Chloride (Normal Saline Flush 0.9%) 10 ml IVP PRN PRN PRN Reason: NEEDED PER PROVIDER ORDERS Last Admin: 03/24/18 10:55 Dose: 10 ml Temazepam (Restoril) 15 mg PO QPM PRN PRN Reason: Insomnia Last Admin: 03/23/18 00:12 Dose: 15 mg Trazodone HCl (Desyrel) 50 mg PO QPM [facility] Last Admin: 03/23/18 21:27 Dose: 50 mg ARIPiprazole [Aripiprazole] 15 mg DAILY 01/15/18 QUEtiapine [SEROquel] 25 mg PO QPM PRN 01/15/18 traZODone [Desyrel] 50 mg DAILY 01/15/18 Cholecalciferol (Vitamin D3) [Vitamin D3] 4,000 unit PO DAILY 03/23/18 Quetiapine Fumarate [Quetiapine Fumarate ER] 800 mg PO QPM 03/23/18 Objective - Vital Signs/Intake & Output Reviewed Vital Signs: Yes Vital Signs: Vital Signs x48h Temp Pulse Pulse Resp BP BP Pulse Ox 03/24/18 15:40 36.5 C 84 16 122/54 L 98 03/24/18 12:45 37.1 C 81 18 121/61 96 Intake & Output: Intake & Output 03/21/18 03/22/18 03/23/18 03/24/18 23:59 23:59 23:59 23:59 Intake Total 700 2420 1400 Output Total 210 1875 700 Balance 490 545 700 - Objective General Appearance: positive: No acute distress, Alert. negative: Lethargic Eyes Bilateral: positive: Normal inspection, PERRL, No lid inflammation, Conjunctivae nml ENT: positive: ENT inspection nml, Pharynx nml, No signs of dehydration. negative: Purulent nasal drainage, Pharyngeal erythema, Oral lesions Neck: positive: Nml inspection, Thyroid nml, No JVD, Trachea midline. negative : Thyromegaly, Lymphadenopathy (R), Lymphadenopathy (L), Stiff neck, Swelling/ bruising, Tracheal deviation Respiratory: positive: Chest non-tender, No respiratory distress, Breath sounds nml. negative: Wheezes, Rales, Rhonchi Cardiovascular: positive: Regular rate & rhythm, No murmur, No gallop. negative : Irregularly irregular, Extrasystoles, Tachycardia, Bradycardia, JVD present, Systolic murmur, Diastolic murmur Peripheral Pulses: 2+ Radial (R), 2+ Radial (L), 2+ Dorsalis pedis (R), 2+ Dorsalis pedis (L) Abdomen: positive: Non-tender, No organomegaly, Nml bowel sounds, No distention. negative: Tenderness, Guarding, Rebound Back: positive: Nml inspection. negative: CVA tenderness (R), CVA tenderness (L ) Skin: positive: Color nml, Warm, Dry. negative: Cyanosis, Diaphoresis, Pallor Extremities: positive: Non-tender, Nml appearance. negative: Calf tenderness, Joint swelling, Marlene's sign/cords Neurologic/Psychiatric: positive: Sensation nml. negative: Weakness, Sensory loss, Facial droop, Slurred/abnml speech - Lab Results Fish Bones: 03/24/18 06:17 03/24/18 06:17 Other Labs: Lab Results x24hrs 03/24/18 03/24/18 Range/Units 06:17 06:17 WBC 7.6 (4.8-10.8) x10^3/uL RBC 3.31 L (4.70-6.10) 10^6/uL Hgb 10.5 L (14.0-18.0) g/dL Hct 31.0 L (42.0-52.0) % MCV 93.7 (80.0-94.0) fL MCH 31.6 H (27.0-31.0) pg MCHC 33.7 (32.0-36.0) g/dL RDW 14.4 (12.0-15.0) % Plt Count 164 (130-450) 10^3/uL MPV 8.1 (7.4-11.4) fL Sodium 138 (135-145) mmol/L Potassium 3.3 L (3.5-5.0) mmol/L Chloride 106 (101-111) mmol/L Carbon Dioxide 25 (21-32) mmol/L Anion Gap 7.0 (6-13) BUN 19 (6-20) mg/dL Creatinine 0.8 (0.6-1.2) mg/dL Estimated GFR (MDRD) 111 (>89) Glucose 123 H (70-100) mg/dL Calcium 8.6 (8.5-10.3) mg/dL ABX Reporting Has patient been on IV antibiotics over the past 48 hours?: Yes Assessment/Plan - Problem List (1) Knee injury Impression: Impression: minimal drainage. pt has good distal sensation and motion, and good capillary refill. pt state he had a good pain control discuss with Dr Pinto for Clindamycin for pt, add Probiotics. Dr. Pinto is managing the patient's pain management and antibiotics, follow up The patient had the knee injury surgically repaired by Dr. Pinto. She is managing the patient's pain management and antibiotics. The patient's toes are warm with good capillary refill. The dressing is dry and intact with minimal drainage. (2) Schizophrenia Impression: Patient has a history of schizophrenia, ADHD, PTSD, and claustrophobia. resume his home medication, closely monitor Patient has a history of schizophrenia, ADHD, PTSD, and claustrophobia. He has been restarted on his Abilify, Seroquel, and trazodone. He is uncooperative and oppositional and a poor historian. Qualifiers: Encounter type: initial encounter Laterality: left Qualified Code(s): S89.92XA - Unspecified injury of left lower leg, initial encounter
[2018-03-24] MEDS: QUEtiapine 100 MG TABLET PO SCH (18:01)
[2018-03-24] MEDS: QUEtiapine 25 MG TABLET PO SCH (20:11)
[2018-03-24] MEDS: NICOTINE 14 MG PATCH TOP SCH (20:16)
[2018-03-24] MEDS ORDERED: QUEtiapine 100 MG TABLET PO SCH (21:00)
[2018-03-24] MEDS: traZODone 50 MG TABLET PO SCH (21:57)
[2018-03-25] MEDS: SODIUM CHLORIDE FLUSH 0.9% 10 ML SYRINGE IVP SCH ×3 (01:01→13:32)
[2018-03-25] MEDS: oxyCOD/ACETAMIN 5 MG/325 MG TABLET PO PRN ×2 (01:38→06:29)
[2018-03-25] MEDS: SODIUM CHLORIDE FLUSH 0.9% 10 ML SYRINGE IVP PRN ×2 (01:38→06:29)
[2018-03-25] MEDS ORDERED: HALOPERIDOL 5 MG/ML VIAL IM PRN (06:22)
[2018-03-25] MEDS: CLINDAMYCIN 600 MG/50 ML 50 ML IV SCH ×3 (06:29→21:26)
[2018-03-25 07:09] LABS: HGB - HEMOGLOBIN 10.1 g/dL (14.0-18.0); MEAN CORPUSCULAR HEMOGLOBIN 30.9 pg (27.0-31.0); MEAN CORPUSCULAR HGB CONC 33.2 g/dL (32.0-36.0); MEAN CORPUSCULAR VOLUME 93.2 fL (80.0-94.0); MEAN PLATELET VOLUME 8.1 fL (7.4-11.4); RED BLOOD COUNT 3.26 10^6/uL (4.70-6.10); RED CELL DISTRIBUTION WIDTH 14.5 % (12.0-15.0)
[2018-03-25 07:16] LABS: CALCIUM 8.8 mg/dL (8.5-10.3); CREATININE 0.7 mg/dL (0.6-1.2)
[2018-03-25] MEDS: SACCHAROMYCES BOULARDII 250 MG CAPSULE PO SCH ×2 (10:11→16:48)
[2018-03-25] MEDS: QUEtiapine 100 MG TABLET PO SCH ×2 (10:11→21:25)
[2018-03-25] MEDS: CHOLECALCIFEROL 5,000 UNIT CAPSULE PO SCH (10:12)
[2018-03-25] MEDS: ENOXAPARIN 40 MG/0.4 ML SYRINGE SUBQ SCH (10:12)
[2018-03-25] MEDS: NICOTINE 14 MG PATCH TOP SCH (10:12)
[2018-03-25] MEDS: HYDROcod/ACETAM 5/325 MG TABLET PO PRN (12:28)
[2018-03-25] MEDS: KETOROLAC 30 MG/ML VIAL IVP PRN (13:37)
--- NOTE | 2018-03-25 16:20 | PROVIDER PROGRESS NOTE ---
Subjective - Prog Note Date Prog Note Date: 03/25/18 - Subjective Pt reports feeling: No change Subjective: pt still has some psychiatric issue but seems better at this afternoon. Current Medications - Current Medications Current Medications: Active Medications Acetaminophen (Tylenol) 650 - 975 mg PO Q4HR PRN PRN Reason: PAIN Hydrocodone Bitart/Acetaminophen ([place] 5/325) 1 tab PO Q4HR PRN PRN Reason: PAIN Last Admin: 03/25/18 12:28 Dose: 1 tab Aripiprazole (Abilify) 15 mg PO DAILY [facility] Last Admin: 03/25/18 16:48 Dose: 15 mg Bisacodyl (Dulcolax) 10 mg PO Q12H PRN PRN Reason: Constipation Bisacodyl (Dulcolax Supp) 10 mg [place] Q12H PRN PRN Reason: Constipation Cholecalciferol (Vitamin D3) 5,000 unit PO DAILY [facility] Last Admin: 03/25/18 10:12 Dose: 5,000 unit Diphenhydramine HCl (Benadryl) 25 mg PO Q6H PRN PRN Reason: ITCHING Diphenhydramine HCl (Benadryl Inj) 25 mg IVP Q6H PRN PRN Reason: ITCHING Docusate Sodium (Colace 100mg Capsule) 100 mg PO BID PRN PRN Reason: Constipation Enoxaparin Sodium (Lovenox) 40 mg SUBQ DAILY [facility] Last Admin: 03/25/18 10:12 Dose: 40 mg Haloperidol (Haldol Inj) 1 mg IM DAILY PRN PRN Reason: Agitation Hydromorphone HCl (Dilaudid Inj Carp) 1 mg IVP Q2HR PRN PRN Reason: Breakthrough Pain Last Admin: 03/22/18 16:50 Dose: 0.2 mg Acetaminophen (Ofirmev) 100 mls @ 400 mls/hr IV Q6HR PRN PRN Reason: PAIN Last Infusion: 03/23/18 00:27 Dose: Infused Clindamycin Phosphate (Cleocin 600 Mg/50 Ml) 50 mls @ 100 mls/hr IV Q8H [facility] Last Infusion: 03/25/18 14:28 Dose: Infused Ketorolac Tromethamine (Toradol Inj (30mg)) 30 mg IVP Q6HR PRN PRN Reason: PAIN Stop: 03/28/18 11:33 Last Admin: 03/25/18 13:37 Dose: 30 mg Naloxone HCl (Narcan) 0.4 mg IVP ONCE PRN PRN Reason: Shortness of Air/Wheezing Stop: 04/21/18 18:30 Nicotine (Nicoderm) 1 patch TOP DAILY [facility] Last Admin: 03/25/18 10:12 Dose: 1 patch Ondansetron HCl (Zofran Inj) 4 mg IVP Q6HR PRN PRN Reason: Nausea / Vomiting Oxycodone HCl (Roxicodone) 5 mg PO Q4HR PRN PRN Reason: PAIN Prochlorperazine Edisylate (Compazine Inj) 10 mg IVP Q6HR PRN PRN Reason: Nausea / Vomiting Quetiapine Fumarate (Seroquel) 25 mg PO QPM [facility] Last Admin: 03/24/18 20:11 Dose: 25 mg Quetiapine Fumarate (Seroquel) 500 mg PO QPM [facility] Last Admin: 03/24/18 18:01 Dose: 500 mg Quetiapine Fumarate (Seroquel) 300 mg PO DAILY [facility] Last Admin: 03/25/18 10:11 Dose: 300 mg Saccharomyces Boulardii (Florastor) 500 mg PO BIDWM [facility] Last Admin: 03/25/18 16:48 Dose: 500 mg Sodium Chloride (Normal Saline Flush 0.9%) 10 ml IVP 0100,0900,1700 [facility] Last Admin: 03/25/18 13:32 Dose: 20 ml Sodium Chloride (Normal Saline Flush 0.9%) 10 ml IVP PRN PRN PRN Reason: NEEDED PER PROVIDER ORDERS Last Admin: 03/25/18 06:29 Dose: 10 ml Temazepam (Restoril) 15 mg PO QPM PRN PRN Reason: Insomnia Last Admin: 03/23/18 00:12 Dose: 15 mg Trazodone HCl (Desyrel) 50 mg PO QPM [facility] Last Admin: 03/24/18 21:57 Dose: 50 mg ARIPiprazole [Aripiprazole] 15 mg DAILY 01/15/18 QUEtiapine [SEROquel] 25 mg PO QPM PRN 01/15/18 traZODone [Desyrel] 50 mg DAILY 01/15/18 Cholecalciferol (Vitamin D3) [Vitamin D3] 4,000 unit PO DAILY 03/23/18 Quetiapine Fumarate [Quetiapine Fumarate ER] 800 mg PO QPM 03/23/18 Objective - Vital Signs/Intake & Output Reviewed Vital Signs: Yes Vital Signs: Vital Signs x48h Temp Pulse Resp BP Pulse Ox 03/25/18 14:00 37.0 C 96 20 144/58 H 93 Intake & Output: Intake & Output 03/22/18 03/23/18 03/24/18 03/25/18 23:59 23:59 23:59 23:59 Intake Total 700 2420 2020 1390 Output Total 210 1875 1350 1450 Balance 490 545 670 -60 - Objective General Appearance: positive: No acute distress, Alert. negative: Lethargic Eyes Bilateral: positive: Normal inspection, PERRL, No lid inflammation, Conjunctivae nml ENT: positive: ENT inspection nml, Pharynx nml, No signs of dehydration. negative: Purulent nasal drainage, Pharyngeal erythema, Oral lesions Neck: positive: Nml inspection, Thyroid nml, No JVD, Trachea midline. negative : Thyromegaly, Lymphadenopathy (R), Lymphadenopathy (L), Stiff neck, Carotid bruit, Swelling/bruising, Tracheal deviation Respiratory: positive: Chest non-tender, No respiratory distress, Breath sounds nml. negative: Wheezes, Rales, Rhonchi Cardiovascular: positive: Regular rate & rhythm, No murmur, No gallop, Irregularly irregular. negative: Extrasystoles, Tachycardia, Bradycardia, JVD present, Systolic murmur, Diastolic murmur Peripheral Pulses: 2+ Radial (R), 2+ Radial (L), 2+ Dorsalis pedis (R), 2+ Dorsalis pedis (L) Abdomen: positive: Non-tender, No organomegaly, Nml bowel sounds, No distention. negative: Tenderness, Guarding, Rebound Back: positive: Nml inspection. negative: CVA tenderness (R), CVA tenderness (L ) Skin: positive: Color nml, No rash, Warm, Dry. negative: Cyanosis, Diaphoresis , Pallor Extremities: positive: Nml appearance. negative: Calf tenderness, Joint swelling, Marlene's sign/cords Neurologic/Psychiatric: positive: Sensation nml, Mood/affect nml. negative: Weakness, Sensory loss, Facial droop, Slurred/abnml speech, Depressed mood/ affect - Lab Results Fish Bones: 03/25/18 06:52 03/25/18 06:52 Other Labs: Lab Results x24hrs 03/25/18 03/25/18 Range/Units 06:52 06:52 WBC 7.0 (4.8-10.8) x10^3/uL RBC 3.26 L (4.70-6.10) 10^6/uL Hgb 10.1 L (14.0-18.0) g/dL Hct 30.3 L (42.0-52.0) % MCV 93.2 (80.0-94.0) fL MCH 30.9 (27.0-31.0) pg MCHC 33.2 (32.0-36.0) g/dL RDW 14.5 (12.0-15.0) % Plt Count 176 (130-450) 10^3/uL MPV 8.1 (7.4-11.4) fL Sodium 139 (135-145) mmol/L Potassium 3.5 (3.5-5.0) mmol/L Chloride 102 (101-111) mmol/L Carbon Dioxide 29 (21-32) mmol/L Anion Gap 8.0 (6-13) BUN 14 (6-20) mg/dL Creatinine 0.7 (0.6-1.2) mg/dL Estimated GFR (MDRD) 129 (>89) Glucose 104 H (70-100) mg/dL Calcium 8.8 (8.5-10.3) mg/dL ABX Reporting Has patient been on IV antibiotics over the past 48 hours?: Yes Assessment/Plan - Problem List (1) Knee injury Impression: Impression: continue antibiotics, follow up surgeon minimal drainage. pt has good distal sensation and motion, and good capillary refill. pt state he had a good pain control discuss with Dr Pinto for Clindamycin for pt, add Probiotics. Dr. Pinto is managing the patient's pain management and antibiotics, follow up The patient had the knee injury surgically repaired by Dr. Pinto. She is managing the patient's pain management and antibiotics. The patient's toes are warm with good capillary refill. The dressing is dry and intact with minimal drainage. (2) Schizophrenia Impression: restart Abilify,Seroquel, and trazodone, closely monitor Patient has a history of schizophrenia, ADHD, PTSD, and claustrophobia. resume his home medication, closely monitor Patient has a history of schizophrenia, ADHD, PTSD, and claustrophobia. He has been restarted on his Abilify, Seroquel, and trazodone. He is uncooperative and oppositional and a poor historian. Qualifiers: Encounter type: initial encounter Laterality: left Qualified Code(s): S89.92XA - Unspecified injury of left lower leg, initial encounter
--- NOTE | 2018-03-25 16:44 | PROVIDER PROGRESS NOTE ---
Subjective - Prog Note Date Prog Note Date: 03/25/18 Prog Note Time: 16:43 - Subjective Pt reports feeling: No change Objective - Vital Signs/Intake & Output Vital Signs: Vital Signs x48h Temp Pulse Resp BP Pulse Ox 03/25/18 14:00 37.0 C 96 20 144/58 H 93 Intake & Output: Intake & Output 03/22/18 03/23/18 03/24/18 03/25/18 23:59 23:59 23:59 23:59 Intake Total 700 2420 2020 1390 Output Total 210 1875 1350 1450 Balance 490 545 670 -60 - Objective Extremities: positive: Other (Wound clean and dry. No erythema or drainage. Neurovascular exam normal.) - Lab Results Fish Bones: 03/25/18 06:52 03/25/18 06:52 Other Labs: Lab Results x24hrs 03/25/18 03/25/18 Range/Units 06:52 06:52 WBC 7.0 (4.8-10.8) x10^3/uL RBC 3.26 L (4.70-6.10) 10^6/uL Hgb 10.1 L (14.0-18.0) g/dL Hct 30.3 L (42.0-52.0) % MCV 93.2 (80.0-94.0) fL MCH 30.9 (27.0-31.0) pg MCHC 33.2 (32.0-36.0) g/dL RDW 14.5 (12.0-15.0) % Plt Count 176 (130-450) 10^3/uL MPV 8.1 (7.4-11.4) fL Sodium 139 (135-145) mmol/L Potassium 3.5 (3.5-5.0) mmol/L Chloride 102 (101-111) mmol/L Carbon Dioxide 29 (21-32) mmol/L Anion Gap 8.0 (6-13) BUN 14 (6-20) mg/dL Creatinine 0.7 (0.6-1.2) mg/dL Estimated GFR (MDRD) 129 (>89) Glucose 104 H (70-100) mg/dL Calcium 8.8 (8.5-10.3) mg/dL Assessment/Plan - Problem List (1) Knee injury Impression: continue antibiotics. Qualifiers: Encounter type: initial encounter Laterality: left Qualified Code(s): S89.92XA - Unspecified injury of left lower leg, initial encounter
[2018-03-25] MEDS: ARIPiprazole 5 MG TABLET PO SCH (16:48)
[2018-03-25] MEDS: oxyCODONE 5 MG TABLET PO PRN (18:39)
[2018-03-25] MEDS: traZODone 50 MG TABLET PO SCH (21:26)
[2018-03-25] MEDS: QUEtiapine 25 MG TABLET PO SCH (21:26)
[2018-03-26] MEDS: oxyCODONE 5 MG TABLET PO PRN ×3 (02:21→23:51)
[2018-03-26] MEDS: SODIUM CHLORIDE FLUSH 0.9% 10 ML SYRINGE IVP SCH ×3 (02:22→17:18)
[2018-03-26] MEDS: KETOROLAC 30 MG/ML VIAL IVP PRN (02:22)
[2018-03-26] MEDS: CLINDAMYCIN 600 MG/50 ML 50 ML IV SCH ×3 (05:45→21:58)
[2018-03-26] MEDS: SACCHAROMYCES BOULARDII 250 MG CAPSULE PO SCH ×2 (08:05→17:18)
[2018-03-26] MEDS: ARIPiprazole 5 MG TABLET PO SCH (08:06)
[2018-03-26] MEDS: QUEtiapine 100 MG TABLET PO SCH ×2 (08:06→21:59)
[2018-03-26] MEDS: NICOTINE 14 MG PATCH TOP SCH (08:06)
[2018-03-26] MEDS: ENOXAPARIN 40 MG/0.4 ML SYRINGE SUBQ SCH (08:06)
[2018-03-26] MEDS: CHOLECALCIFEROL 5,000 UNIT CAPSULE PO SCH (08:06)
[2018-03-26] MEDS: HYDROcod/ACETAM 5/325 MG TABLET PO PRN (08:13)
--- NOTE | 2018-03-26 14:07 | PROVIDER PROGRESS NOTE ---
Subjective - Prog Note Date Prog Note Date: 03/26/18 - Subjective Pt reports feeling: No change Subjective: pt continue to have psychosis issue. Tele psych is set up, and psychiatrist assessed pt, wait for psychiatrist's recommendation. otherwise pt does not have fever, chill. Current Medications - Current Medications Current Medications: Active Medications Acetaminophen (Tylenol) 650 - 975 mg PO Q4HR PRN PRN Reason: PAIN Hydrocodone Bitart/Acetaminophen ([place] 5/325) 1 tab PO Q4HR PRN PRN Reason: PAIN Last Admin: 03/26/18 08:13 Dose: 1 tab Aripiprazole (Abilify) 15 mg PO DAILY [facility] Last Admin: 03/26/18 08:06 Dose: 15 mg Bisacodyl (Dulcolax) 10 mg PO Q12H PRN PRN Reason: Constipation Bisacodyl (Dulcolax Supp) 10 mg MO Q12H PRN PRN Reason: Constipation Cholecalciferol (Vitamin D3) 5,000 unit PO DAILY [facility] Last Admin: 03/26/18 08:06 Dose: 5,000 unit Diphenhydramine HCl (Benadryl) 25 mg PO Q6H PRN PRN Reason: ITCHING Diphenhydramine HCl (Benadryl Inj) 25 mg IVP Q6H PRN PRN Reason: ITCHING Docusate Sodium (Colace 100mg Capsule) 100 mg PO BID PRN PRN Reason: Constipation Enoxaparin Sodium (Lovenox) 40 mg SUBQ DAILY [facility] Last Admin: 03/26/18 08:06 Dose: 40 mg Haloperidol (Haldol Inj) 1 mg IM DAILY PRN PRN Reason: Agitation Last Admin: 03/26/18 07:27 Dose: 1 mg Hydromorphone HCl (Dilaudid Inj Carp) 1 mg IVP Q2HR PRN PRN Reason: Breakthrough Pain Last Admin: 03/22/18 16:50 Dose: 0.2 mg Acetaminophen (Ofirmev) 100 mls @ 400 mls/hr IV Q6HR PRN PRN Reason: PAIN Last Infusion: 03/23/18 00:27 Dose: Infused Clindamycin Phosphate (Cleocin 600 Mg/50 Ml) 50 mls @ 100 mls/hr IV Q8H [facility] Last Infusion: 03/26/18 06:35 Dose: Infused Ketorolac Tromethamine (Toradol Inj (30mg)) 30 mg IVP Q6HR PRN PRN Reason: PAIN Stop: 03/28/18 11:33 Last Admin: 03/26/18 02:22 Dose: 30 mg Naloxone HCl (Narcan) 0.4 mg IVP ONCE PRN PRN Reason: Shortness of Air/Wheezing Stop: 04/21/18 18:30 Nicotine (Nicoderm) 1 patch TOP DAILY [facility] Last Admin: 03/26/18 08:06 Dose: 1 patch Ondansetron HCl (Zofran Inj) 4 mg IVP Q6HR PRN PRN Reason: Nausea / Vomiting Oxycodone HCl (Roxicodone) 5 mg PO Q4HR PRN PRN Reason: PAIN Last Admin: 03/26/18 02:21 Dose: 5 mg Prochlorperazine Edisylate (Compazine Inj) 10 mg IVP Q6HR PRN PRN Reason: Nausea / Vomiting Quetiapine Fumarate (Seroquel) 25 mg PO QPM [facility] Last Admin: 03/25/18 21:26 Dose: 25 mg Quetiapine Fumarate (Seroquel) 500 mg PO QPM [facility] Last Admin: 03/25/18 21:25 Dose: 500 mg Quetiapine Fumarate (Seroquel) 300 mg PO DAILY [facility] Last Admin: 03/26/18 08:06 Dose: 300 mg Saccharomyces Boulardii (Florastor) 500 mg PO BIDWM [facility] Last Admin: 03/26/18 08:05 Dose: 500 mg Sodium Chloride (Normal Saline Flush 0.9%) 10 ml IVP 0100,0900,1700 [facility] Last Admin: 03/26/18 08:07 Dose: 10 ml Sodium Chloride (Normal Saline Flush 0.9%) 10 ml IVP PRN PRN PRN Reason: NEEDED PER PROVIDER ORDERS Last Admin: 03/25/18 06:29 Dose: 10 ml Temazepam (Restoril) 15 mg PO QPM PRN PRN Reason: Insomnia Last Admin: 03/23/18 00:12 Dose: 15 mg Trazodone HCl (Desyrel) 50 mg PO QPM [facility] Last Admin: 03/25/18 21:26 Dose: 50 mg ARIPiprazole [Aripiprazole] 15 mg DAILY 01/15/18 QUEtiapine [SEROquel] 25 mg PO QPM PRN 01/15/18 traZODone [Desyrel] 50 mg DAILY 01/15/18 Cholecalciferol (Vitamin D3) [Vitamin D3] 4,000 unit PO DAILY 03/23/18 Quetiapine Fumarate [Quetiapine Fumarate ER] 800 mg PO QPM 03/23/18 Objective - Vital Signs/Intake & Output Reviewed Vital Signs: Yes Vital Signs: Vital Signs x48h Temp Pulse Resp BP Pulse Ox 03/26/18 10:49 16 03/26/18 07:57 36.2 C L 89 18 132/67 H 93 Intake & Output: Intake & Output 03/23/18 03/24/18 03/25/18 03/26/18 23:59 23:59 23:59 23:59 Intake Total 2420 2020 2200 570 Output Total 1875 1350 2850 525 Balance 545 670 -650 45 - Objective General Appearance: positive: No acute distress, Alert. negative: Lethargic Eyes Bilateral: positive: Normal inspection, PERRL, No lid inflammation, Conjunctivae nml ENT: positive: ENT inspection nml, Pharynx nml, No signs of dehydration. negative: Purulent nasal drainage, Pharyngeal erythema, Oral lesions Neck: positive: Nml inspection, Thyroid nml, No JVD, Trachea midline. negative : Thyromegaly, Lymphadenopathy (R), Lymphadenopathy (L), Stiff neck, Swelling/ bruising, Tracheal deviation Respiratory: positive: Chest non-tender, No respiratory distress, Breath sounds nml. negative: Wheezes, Rales, Rhonchi Cardiovascular: positive: Regular rate & rhythm, No murmur, No gallop. negative : Irregularly irregular, Extrasystoles, Tachycardia, Bradycardia, JVD present, Systolic murmur, Diastolic murmur Peripheral Pulses: 2+ Radial (R), 2+ Radial (L), 2+ Dorsalis pedis (R), 2+ Dorsalis pedis (L) Abdomen: positive: Non-tender, No organomegaly, Nml bowel sounds, No distention. negative: Tenderness, Guarding, Rebound Back: positive: Nml inspection. negative: CVA tenderness (R), CVA tenderness (L ) Skin: positive: Color nml, Warm, Dry. negative: Cyanosis, Diaphoresis, Pallor Extremities: positive: Non-tender, Nml appearance. negative: Calf tenderness, Joint swelling, Marlene's sign/cords Neurologic/Psychiatric: positive: Sensation nml. negative: Weakness, Sensory loss, Facial droop, Slurred/abnml speech, Depressed mood/affect - Lab Results Fish Bones: 03/25/18 06:52 03/25/18 06:52 Other Labs: Lab Results x24hrs 03/25/18 Range/Units 08:11 POC Whole Bld Glucose 148 H (70 - 100) mg/dL ABX Reporting Has patient been on IV antibiotics over the past 48 hours?: Yes Assessment/Plan - Problem List (1) Knee injury Impression: Impression: 03/26discuss with Dr. Pinto, continue antibiotics continue antibiotics, follow up surgeon minimal drainage. pt has good distal sensation and motion, and good capillary refill. pt state he had a good pain control discuss with Dr Pinto for Clindamycin for pt, add Probiotics. Dr. Pinto is managing the patient's pain management and antibiotics, follow up The patient had the knee injury surgically repaired by Dr. Pinto. She is managing the patient's pain management and antibiotics. The patient's toes are warm with good capillary refill. The dressing is dry and intact with minimal drainage. (2) Schizophrenia Impression: pt continue to have psychosis issue. tele psychiatrist assessed pt, recommendation is pending, will follow up restart Abilify,Seroquel, and trazodone, closely monitor Patient has a history of schizophrenia, ADHD, PTSD, and claustrophobia. resume his home medication, closely monitor Patient has a history of schizophrenia, ADHD, PTSD, and claustrophobia. He has been restarted on his Abilify, Seroquel, and trazodone. He is uncooperative and oppositional and a poor historian. Qualifiers: Encounter type: initial encounter Laterality: left Qualified Code(s): S89.92XA - Unspecified injury of left lower leg, initial encounter
--- NOTE | 2018-03-26 14:34 | PROVIDER PROGRESS NOTE ---
Subjective - Prog Note Date Prog Note Date: 03/26/18 Prog Note Time: 14:33 - Subjective Pt reports feeling: Worse (More psychosis. Have gotten a psychiatry consult.) Objective - Vital Signs/Intake & Output Vital Signs: Vital Signs x48h Temp Pulse Resp BP Pulse Ox 03/26/18 10:49 16 03/26/18 07:57 36.2 C L 89 18 132/67 H 93 Intake & Output: Intake & Output 03/23/18 03/24/18 03/25/18 03/26/18 23:59 23:59 23:59 23:59 Intake Total 2420 2020 2200 920 Output Total 1875 1350 2850 525 Balance 545 670 -650 395 - Objective Extremities: positive: Other (Dressing changed by nursing staff and wound looks good) Neurologic/Psychiatric: positive: Other (On and off Psychosis.) - Lab Results Fish Bones: 03/25/18 06:52 03/25/18 06:52 Other Labs: Lab Results x24hrs 03/25/18 Range/Units 08:11 POC Whole Bld Glucose 148 H (70 - 100) mg/dL Assessment/Plan - Problem List (1) Knee injury Impression: Wound OK. Concerns mostly about his psychosis. Placement plans evolving. Qualifiers: Qualified Code(s): S89.92XA - Unspecified injury of left lower leg, initial encounter
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
[2018-03-26] MEDS: QUEtiapine 25 MG TABLET PO SCH (21:59)
[2018-03-26] MEDS: traZODone 50 MG TABLET PO SCH (21:59)
[2018-03-27] MEDS: SODIUM CHLORIDE FLUSH 0.9% 10 ML SYRINGE IVP SCH ×3 (00:07→16:04)
[2018-03-27 04:59] LABS: BASOPHILS # (AUTO) 0.1 10^3/uL (0.0-0.1); EOSINOPHILS # (AUTO) 0.2 10^3/uL (0.0-0.7); EOSINOPHILS % (AUTO) 2.4 %; HGB - HEMOGLOBIN 10.4 g/dL (14.0-18.0); LYMPHOCYTES # (AUTO) 1.5 10^3/uL (1.5-3.5); LYMPHOCYTES % (AUTO) 20.6 %; MEAN CORPUSCULAR HEMOGLOBIN 31.8 pg (27.0-31.0); MEAN CORPUSCULAR HGB CONC 34.1 g/dL (32.0-36.0); MEAN CORPUSCULAR VOLUME 93.3 fL (80.0-94.0); MEAN PLATELET VOLUME 8.2 fL (7.4-11.4); MONOCYTES # (AUTO) 0.6 10^3/uL (0.0-1.0); MONOCYTES % (AUTO) 8.6 %; NEUTROPHILS # (AUTO) 4.9 10^3/uL (1.5-6.6); NEUTROPHILS % (AUTO) 67.4 %; PLT - PLATELET COUNT 216 10^3/uL (130-450); RED BLOOD COUNT 3.28 10^6/uL (4.70-6.10); RED CELL DISTRIBUTION WIDTH 14.3 % (12.0-15.0); WHITE BLOOD COUNT 7.3 x10^3/uL (4.8-10.8)
[2018-03-27 05:09] LABS: ALBUMIN 3.2 g/dL (3.2-5.5); BILIRUBIN,TOTAL 0.4 mg/dL (0.2-1.0); CREATININE 0.7 mg/dL (0.6-1.2); TOTAL PROTEIN 6.4 g/dL (6.7-8.2)
[2018-03-27] MEDS: oxyCODONE 5 MG TABLET PO PRN (06:02)
[2018-03-27] MEDS: KETOROLAC 30 MG/ML VIAL IVP PRN (06:02)
[2018-03-27] MEDS: SODIUM CHLORIDE FLUSH 0.9% 10 ML SYRINGE IVP PRN ×2 (06:17→20:30)
[2018-03-27] MEDS: CLINDAMYCIN 600 MG/50 ML 50 ML IV SCH ×2 (06:25→14:00)
[2018-03-27] MEDS: QUEtiapine 100 MG TABLET PO SCH ×2 (07:57→20:45)
[2018-03-27] MEDS: ARIPiprazole 5 MG TABLET PO SCH (07:58)
[2018-03-27] MEDS: SACCHAROMYCES BOULARDII 250 MG CAPSULE PO SCH ×2 (07:59→16:04)
[2018-03-27] MEDS: CHOLECALCIFEROL 5,000 UNIT CAPSULE PO SCH (07:59)
[2018-03-27] MEDS: NICOTINE 14 MG PATCH TOP SCH (08:00)
[2018-03-27] MEDS: ENOXAPARIN 40 MG/0.4 ML SYRINGE SUBQ SCH (08:02)
--- NOTE | 2018-03-27 09:26 | PROVIDER PROGRESS NOTE ---
Subjective - Prog Note Date Prog Note Date: 03/27/18 Prog Note Time: 09:23 - Subjective Pt reports feeling: Improved Objective - Vital Signs/Intake & Output Vital Signs: Vital Signs x48h Temp Pulse Resp BP Pulse Ox 03/27/18 07:51 36.5 C 65 20 104/53 L 90 L Intake & Output: Intake & Output 03/24/18 03/25/18 03/26/18 03/27/18 23:59 23:59 23:59 23:59 Intake Total 2019 2200 1270 890 Output Total 1350 2850 3125 2350 Balance 152 -519 -2003 -4171 - Lab Results Fish Bones: 03/27/18 04:25 03/27/18 04:25 Other Labs: Lab Results x24hrs 03/27/18 03/27/18 03/25/18 Range/Units 04:25 04:25 08:11 WBC 7.3 (4.8-10.8) x10^3/uL RBC 3.28 L (4.70-6.10) 10^6/uL Hgb 10.4 L (14.0-18.0) g/dL Hct 30.6 L (42.0-52.0) % MCV 93.3 (80.0-94.0) fL MCH 31.8 H (27.0-31.0) pg MCHC 34.1 (32.0-36.0) g/dL RDW 14.3 (12.0-15.0) % Plt Count 216 (130-450) 10^3/uL MPV 8.2 (7.4-11.4) fL Neut # (Auto) 4.9 (1.5-6.6) 10^3/uL Lymph # (Auto) 1.5 (1.5-3.5) 10^3/uL [place] # (Auto) 0.6 (0.0-1.0) 10^3/uL Eos # (Auto) 0.2 (0.0-0.7) 10^3/uL Baso # (Auto) 0.1 (0.0-0.1) 10^3/uL Absolute Nucleated RBC 0.00 x10^3/uL Nucleated RBC % 0.1 /100WBC Sodium 137 (135-145) mmol/L Potassium 4.0 (3.5-5.0) mmol/L Chloride 101 (101-111) mmol/L Carbon Dioxide 28 (21-32) mmol/L Anion Gap 8.0 (6-13) BUN 9 (6-20) mg/dL Creatinine 0.7 (0.6-1.2) mg/dL Estimated GFR (MDRD) 129 (>89) Glucose 111 H (70-100) mg/dL POC Whole Bld Glucose 148 H (70 - 100) mg/dL Calcium 9.0 (8.5-10.3) mg/dL Total Bilirubin 0.4 (0.2-1.0) mg/dL AST 39 (10-42) IU/L ALT 52 (10-60) IU/L Alkaline Phosphatase 59 (42-121) IU/L Total Protein 6.4 L (6.7-8.2) g/dL Albumin 3.2 (3.2-5.5) g/dL Globulin 3.2 (2.1-4.2) g/dL Albumin/Globulin Ratio 1.0 (1.0-2.2) - Other Results/Comments Other Results/Comments: EXAM: Dressing chnaged with nurse at bedside. Wounds-benign. Corners appear viable. No drainage. No focal tenderness. Mild effusion. ROM: 20 degrees. N /V ok distally Assessment/Plan - Problem List (1) Knee injury Impression: Improved PLAN: Continue knee immobilizer for another 7-10 days. Antibiotics for 10 days. Weightbearing as tolerated in knee brace. Follow up in orthopedic clinic in one week. Qualifiers: Encounter type: initial encounter Laterality: left Qualified Code(s): S89.92XA - Unspecified injury of left lower leg, initial encounter
[2018-03-27] MEDS ORDERED: traZODone 50 MG TABLET PO PRN (10:14)
[2018-03-27] MEDS ORDERED: HALOPERIDOL 5 MG/ML VIAL IM PRN (10:26)
[2018-03-27] MEDS: MULTIVITAMIN W/MINERALS TABLET PO SCH (10:35)
[2018-03-27] MEDS: HYDROmorphone 1 MG/ML CARPUJECT IVP PRN ×2 (11:49→20:29)
--- NOTE | 2018-03-27 12:43 | PROVIDER PROGRESS NOTE ---
Subjective - Prog Note Date Prog Note Date: 03/27/18 - Subjective Pt reports feeling: Improved Subjective: today pt's behaviour and voice is better than yesterday, he think breakfast is ok. According psychiatrist's recommendation, pt's medication is adjusted. Current Medications - Current Medications Current Medications: Active Medications Acetaminophen (Tylenol) 650 - 975 mg PO Q4HR PRN PRN Reason: PAIN Hydrocodone Bitart/Acetaminophen ([place] 5/325) 1 tab PO Q4HR PRN PRN Reason: PAIN Last Admin: 03/26/18 08:13 Dose: 1 tab Aripiprazole (Abilify) 15 mg PO DAILY [facility] Last Admin: 03/27/18 07:58 Dose: 15 mg Bisacodyl (Dulcolax) 10 mg PO Q12H PRN PRN Reason: Constipation Bisacodyl (Dulcolax Supp) 10 mg [place] Q12H PRN PRN Reason: Constipation Cholecalciferol (Vitamin D3) 5,000 unit PO DAILY [facility] Last Admin: 03/27/18 07:59 Dose: 5,000 unit Diphenhydramine HCl (Benadryl) 25 mg PO Q6H PRN PRN Reason: ITCHING Last Admin: 03/27/18 00:03 Dose: 25 mg Diphenhydramine HCl (Benadryl Inj) 25 mg IVP Q6H PRN PRN Reason: ITCHING Docusate Sodium (Colace 100mg Capsule) 100 mg PO BID PRN PRN Reason: Constipation Enoxaparin Sodium (Lovenox) 40 mg SUBQ DAILY [facility] Last Admin: 03/27/18 08:02 Dose: 40 mg Haloperidol (Haldol Inj) 5 mg IM BID PRN PRN Reason: Agitation Hydromorphone HCl (Dilaudid Inj Carp) 1 mg IVP Q2HR PRN PRN Reason: Breakthrough Pain Last Admin: 03/27/18 11:49 Dose: 1 mg Acetaminophen (Ofirmev) 100 mls @ 400 mls/hr IV Q6HR PRN PRN Reason: PAIN Last Infusion: 03/23/18 00:27 Dose: Infused Clindamycin Phosphate (Cleocin 600 Mg/50 Ml) 50 mls @ 100 mls/hr IV Q8H [facility] Last Infusion: 03/27/18 06:55 Dose: Infused Ketorolac Tromethamine (Toradol Inj (30mg)) 30 mg IVP Q6HR PRN PRN Reason: PAIN Stop: 03/28/18 11:33 Last Admin: 03/27/18 06:02 Dose: 30 mg Multivitamins/Minerals (Theragran M) 1 tab PO DAILYWM [facility] Last Admin: 03/27/18 10:35 Dose: 1 tab Naloxone HCl (Narcan) 0.4 mg IVP ONCE PRN PRN Reason: Shortness of Air/Wheezing Stop: 04/21/18 18:30 Nicotine (Nicoderm) 1 patch TOP DAILY [facility] Last Admin: 03/27/18 08:00 Dose: 1 patch Ondansetron HCl (Zofran Inj) 4 mg IVP Q6HR PRN PRN Reason: Nausea / Vomiting Oxycodone HCl (Roxicodone) 5 mg PO Q4HR PRN PRN Reason: PAIN Last Admin: 03/27/18 06:02 Dose: 5 mg Prochlorperazine Edisylate (Compazine Inj) 10 mg IVP Q6HR PRN PRN Reason: Nausea / Vomiting Quetiapine Fumarate (Seroquel) 25 mg PO QPM [facility] Last Admin: 03/26/18 21:59 Dose: 25 mg Quetiapine Fumarate (Seroquel) 300 mg PO BID [facility] Saccharomyces Boulardii (Florastor) 500 mg PO BIDWM [facility] Last Admin: 03/27/18 07:59 Dose: 500 mg Sodium Chloride (Normal Saline Flush 0.9%) 10 ml IVP 0100,0900,1700 [facility] Last Admin: 03/27/18 06:03 Dose: 10 ml Sodium Chloride (Normal Saline Flush 0.9%) 10 ml IVP PRN PRN PRN Reason: NEEDED PER PROVIDER ORDERS Last Admin: 03/27/18 06:17 Dose: 10 ml Trazodone HCl (Desyrel) 50 mg PO QPM [facility] Last Admin: 03/26/18 21:59 Dose: 50 mg Trazodone HCl (Desyrel) 50 mg PO QPM PRN PRN Reason: Insomnia ARIPiprazole [Aripiprazole] 15 mg DAILY 01/15/18 QUEtiapine [SEROquel] 25 mg PO QPM PRN 01/15/18 traZODone [Desyrel] 50 mg DAILY 01/15/18 Cholecalciferol (Vitamin D3) [Vitamin D3] 4,000 unit PO DAILY 03/23/18 Quetiapine Fumarate [Quetiapine Fumarate ER] 800 mg PO QPM 03/23/18 Objective - Vital Signs/Intake & Output Reviewed Vital Signs: Yes Vital Signs: Vital Signs x48h Temp Pulse Resp BP Pulse Ox 03/27/18 07:51 36.5 C 65 20 104/53 L 90 L Intake & Output: Intake & Output 03/24/18 03/25/18 03/26/18 03/27/18 23:59 23:59 23:59 23:59 Intake Total 20190 1270 1070 Output Total 1350 2850 3125 2900 Balance 388 -498 -8078 -9159 - Objective General Appearance: positive: No acute distress, Alert. negative: Lethargic Eyes Bilateral: positive: Normal inspection, PERRL, No lid inflammation, Conjunctivae nml ENT: positive: ENT inspection nml, Pharynx nml, No signs of dehydration. negative: Purulent nasal drainage, Pharyngeal erythema, Oral lesions Neck: positive: Nml inspection, Thyroid nml, No JVD, Trachea midline. negative : Thyromegaly, Lymphadenopathy (R), Lymphadenopathy (L), Stiff neck, Swelling/ bruising, Tracheal deviation Respiratory: positive: Chest non-tender, No respiratory distress, Breath sounds nml. negative: Wheezes, Rales, Rhonchi Cardiovascular: positive: Regular rate & rhythm, No murmur, No gallop. negative : Irregularly irregular, Extrasystoles, Tachycardia, Bradycardia, JVD present, Systolic murmur, Diastolic murmur Peripheral Pulses: 2+ Radial (R), 2+ Radial (L), 2+ Dorsalis pedis (R), 2+ Dorsalis pedis (L) Abdomen: positive: Non-tender, No organomegaly, Nml bowel sounds, No distention. negative: Tenderness, Guarding, Rebound Back: positive: Nml inspection. negative: CVA tenderness (R), CVA tenderness (L ) Skin: positive: Color nml, No rash, Warm, Dry. negative: Cyanosis, Diaphoresis , Pallor Extremities: positive: Non-tender, Full ROM, Nml appearance. negative: Calf tenderness, Joint swelling, Marlene's sign/cords Neurologic/Psychiatric: positive: Sensation nml, Mood/affect nml. negative: Weakness, Sensory loss, Facial droop, Slurred/abnml speech, Depressed mood/ affect - Lab Results Fish Bones: 03/28/18 08:55 03/28/18 08:55 Other Labs: Lab Results x24hrs 03/27/18 03/27/18 Range/Units 04:25 04:25 WBC 7.3 (4.8-10.8) x10^3/uL RBC 3.28 L (4.70-6.10) 10^6/uL Hgb 10.4 L (14.0-18.0) g/dL Hct 30.6 L (42.0-52.0) % MCV 93.3 (80.0-94.0) fL MCH 31.8 H (27.0-31.0) pg MCHC 34.1 (32.0-36.0) g/dL RDW 14.3 (12.0-15.0) % Plt Count 216 (130-450) 10^3/uL MPV 8.2 (7.4-11.4) fL Neut # (Auto) 4.9 (1.5-6.6) 10^3/uL Lymph # (Auto) 1.5 (1.5-3.5) 10^3/uL [place] # (Auto) 0.6 (0.0-1.0) 10^3/uL Eos # (Auto) 0.2 (0.0-0.7) 10^3/uL Baso # (Auto) 0.1 (0.0-0.1) 10^3/uL Absolute Nucleated RBC 0.00 x10^3/uL Nucleated RBC % 0.1 /100WBC Sodium 137 (135-145) mmol/L Potassium 4.0 (3.5-5.0) mmol/L Chloride 101 (101-111) mmol/L Carbon Dioxide 28 (21-32) mmol/L Anion Gap 8.0 (6-13) BUN 9 (6-20) mg/dL Creatinine 0.7 (0.6-1.2) mg/dL Estimated GFR (MDRD) 129 (>89) Glucose 111 H (70-100) mg/dL Calcium 9.0 (8.5-10.3) mg/dL Total Bilirubin 0.4 (0.2-1.0) mg/dL AST 39 (10-42) IU/L ALT 52 (10-60) IU/L Alkaline Phosphatase 59 (42-121) IU/L Total Protein 6.4 L (6.7-8.2) g/dL Albumin 3.2 (3.2-5.5) g/dL Globulin 3.2 (2.1-4.2) g/dL Albumin/Globulin Ratio 1.0 (1.0-2.2) ABX Reporting Has patient been on IV antibiotics over the past 48 hours?: Yes Assessment/Plan - Problem List (1) Knee injury Impression: Impression: 03/27, discuss with Dr. Strong, switch to PO antibiotics. Injury cover is improved 03/26discuss with Dr. Pinto, continue antibiotics continue antibiotics, follow up surgeon minimal drainage. pt has good distal sensation and motion, and good capillary refill. pt state he had a good pain control discuss with Dr Pinto for Clindamycin for pt, add Probiotics. Dr. Pinto is managing the patient's pain management and antibiotics, follow up The patient had the knee injury surgically repaired by Dr. Pinto. She is managing the patient's pain management and antibiotics. The patient's toes are warm with good capillary refill. The dressing is dry and intact with minimal drainage. (2) Schizophrenia Impression: today pt is more calm down. start the medication recommended by tele psychiatrist. pt continue to have psychosis issue. tele psychiatrist assessed pt, recommendation is pending, will follow up restart Abilify,Seroquel, and trazodone, closely monitor Patient has a history of schizophrenia, ADHD, PTSD, and claustrophobia. resume his home medication, closely monitor Patient has a history of schizophrenia, ADHD, PTSD, and claustrophobia. He has been restarted on his Abilify, Seroquel, and trazodone. He is uncooperative and oppositional and a poor historian. Qualifiers: Encounter type: initial encounter Laterality: left Qualified Code(s): S89.92XA - Unspecified injury of left lower leg, initial encounter
[2018-03-27] MEDS: HYDROcod/ACETAM 5/325 MG TABLET PO PRN (16:08)
[2018-03-27] MEDS: traZODone 50 MG TABLET PO SCH (20:45)
[2018-03-27] MEDS: QUEtiapine 25 MG TABLET PO SCH (20:45)
[2018-03-27] MEDS: cephALEXin 250 MG CAPSULE PO SCH (20:45)
[2018-03-28] MEDS: SODIUM CHLORIDE FLUSH 0.9% 10 ML SYRINGE IVP SCH ×3 (00:48→16:03)
[2018-03-28] MEDS: HYDROcod/ACETAM 5/325 MG TABLET PO PRN ×2 (02:29→12:07)
[2018-03-28] MEDS: QUEtiapine 100 MG TABLET PO SCH (08:24)
[2018-03-28] MEDS: MULTIVITAMIN W/MINERALS TABLET PO SCH (08:25)
[2018-03-28] MEDS: ARIPiprazole 5 MG TABLET PO SCH (08:25)
[2018-03-28] MEDS: cephALEXin 250 MG CAPSULE PO SCH (08:26)
[2018-03-28] MEDS: CHOLECALCIFEROL 5,000 UNIT CAPSULE PO SCH (08:26)
[2018-03-28] MEDS: SACCHAROMYCES BOULARDII 250 MG CAPSULE PO SCH ×2 (08:26→16:03)
[2018-03-28] MEDS: NICOTINE 14 MG PATCH TOP SCH (08:27)
[2018-03-28] MEDS: ENOXAPARIN 40 MG/0.4 ML SYRINGE SUBQ SCH (08:29)
[2018-03-28] MEDS: KETOROLAC 30 MG/ML VIAL IVP PRN (08:33)
[2018-03-28 09:28] LABS: ALBUMIN 3.2 g/dL (3.2-5.5); ALBUMIN/GLOBULIN RATIO 0.8 (1.0-2.2); BILIRUBIN,TOTAL 0.9 mg/dL (0.2-1.0); CALCIUM 9.3 mg/dL (8.5-10.3); CREATININE 0.9 mg/dL (0.6-1.2)
[2018-03-28 09:30] LABS: BASOPHILS % (AUTO) 0.4 %; EOSINOPHILS # (AUTO) 0.2 10^3/uL (0.0-0.7); EOSINOPHILS % (AUTO) 3.2 %; HGB - HEMOGLOBIN 11.6 g/dL (14.0-18.0); LYMPHOCYTES # (AUTO) 1.5 10^3/uL (1.5-3.5); LYMPHOCYTES % (AUTO) 20.9 %; MEAN CORPUSCULAR HEMOGLOBIN 31.2 pg (27.0-31.0); MEAN CORPUSCULAR HGB CONC 33.5 g/dL (32.0-36.0); MEAN CORPUSCULAR VOLUME 93.1 fL (80.0-94.0); MONOCYTES # (AUTO) 0.5 10^3/uL (0.0-1.0); MONOCYTES % (AUTO) 6.4 %; NEUTROPHILS % (AUTO) 69.1 %; PLT - PLATELET COUNT 235 10^3/uL (130-450); RED BLOOD COUNT 3.71 10^6/uL (4.70-6.10); RED CELL DISTRIBUTION WIDTH 14.1 % (12.0-15.0); WHITE BLOOD COUNT 7.2 x10^3/uL (4.8-10.8)
[2018-03-28 13:32] VITALS: BP 123/72
--- NOTE | 2018-03-28 13:53 | PROVIDER PROGRESS NOTE ---
Subjective - Prog Note Date Prog Note Date: 03/28/18 - Subjective Pt reports feeling: Improved Subjective: today pt is more cooperative. assess pt's injury, no drainage, dressing is intact, no swelling. Dr. Strong assessed pt as well. Injury is significantly improved. DCR is contacted. DCR assessment is pending. Current Medications - Current Medications Current Medications: Active Medications Acetaminophen (Tylenol) 650 - 975 mg PO Q4HR PRN PRN Reason: PAIN Hydrocodone Bitart/Acetaminophen ([place] 5/325) 1 tab PO Q4HR PRN PRN Reason: PAIN Last Admin: 03/28/18 12:07 Dose: 1 tab Aripiprazole (Abilify) 15 mg PO DAILY [facility] Last Admin: 03/28/18 08:25 Dose: 15 mg Bisacodyl (Dulcolax) 10 mg PO Q12H PRN PRN Reason: Constipation Bisacodyl (Dulcolax Supp) 10 mg [place] Q12H PRN PRN Reason: Constipation Cephalexin (Keflex) 500 mg PO BID [facility] Last Admin: 03/28/18 08:26 Dose: 500 mg Cholecalciferol (Vitamin D3) 5,000 unit PO DAILY [facility] Last Admin: 03/28/18 08:26 Dose: 5,000 unit Diphenhydramine HCl (Benadryl) 25 mg PO Q6H PRN PRN Reason: ITCHING Last Admin: 03/27/18 00:03 Dose: 25 mg Diphenhydramine HCl (Benadryl Inj) 25 mg IVP Q6H PRN PRN Reason: ITCHING Docusate Sodium (Colace 100mg Capsule) 100 mg PO BID PRN PRN Reason: Constipation Last Admin: 03/28/18 08:26 Dose: 100 mg Enoxaparin Sodium (Lovenox) 40 mg SUBQ DAILY [facility] Last Admin: 03/28/18 08:29 Dose: 40 mg Haloperidol (Haldol Inj) 5 mg IM BID PRN PRN Reason: Agitation Hydromorphone HCl (Dilaudid Inj Carp) 1 mg IVP Q2HR PRN PRN Reason: Breakthrough Pain Last Admin: 03/27/18 20:29 Dose: 1 mg Acetaminophen (Ofirmev) 100 mls @ 400 mls/hr IV Q6HR PRN PRN Reason: PAIN Last Infusion: 03/23/18 00:27 Dose: Infused Multivitamins/Minerals (Theragran M) 1 tab PO DAILYWM [facility] Last Admin: 03/28/18 08:25 Dose: 1 tab Naloxone HCl (Narcan) 0.4 mg IVP ONCE PRN PRN Reason: Shortness of Air/Wheezing Stop: 04/21/18 18:30 Nicotine (Nicoderm) 1 patch TOP DAILY [facility] Last Admin: 03/28/18 08:27 Dose: 1 patch Ondansetron HCl (Zofran Inj) 4 mg IVP Q6HR PRN PRN Reason: Nausea / Vomiting Oxycodone HCl (Roxicodone) 5 mg PO Q4HR PRN PRN Reason: PAIN Last Admin: 03/27/18 06:02 Dose: 5 mg Prochlorperazine Edisylate (Compazine Inj) 10 mg IVP Q6HR PRN PRN Reason: Nausea / Vomiting Quetiapine Fumarate (Seroquel) 25 mg PO QPM [facility] Last Admin: 03/27/18 20:45 Dose: 25 mg Quetiapine Fumarate (Seroquel) 300 mg PO BID [facility] Last Admin: 03/28/18 08:24 Dose: 300 mg Saccharomyces Boulardii (Florastor) 500 mg PO BIDWM [facility] Last Admin: 03/28/18 08:26 Dose: 500 mg Sodium Chloride (Normal Saline Flush 0.9%) 10 ml IVP 0100,0900,1700 [facility] Last Admin: 03/28/18 08:29 Dose: 10 ml Sodium Chloride (Normal Saline Flush 0.9%) 10 ml IVP PRN PRN PRN Reason: NEEDED PER PROVIDER ORDERS Last Admin: 03/27/18 20:30 Dose: 10 ml Trazodone HCl (Desyrel) 50 mg PO QPM [facility] Last Admin: 03/27/18 20:45 Dose: 50 mg Trazodone HCl (Desyrel) 50 mg PO QPM PRN PRN Reason: Insomnia ARIPiprazole [Aripiprazole] 15 mg DAILY 01/15/18 QUEtiapine [SEROquel] 25 mg PO QPM PRN 01/15/18 traZODone [Desyrel] 50 mg DAILY 01/15/18 Cholecalciferol (Vitamin D3) [Vitamin D3] 4,000 unit PO DAILY 03/23/18 Quetiapine Fumarate [Quetiapine Fumarate ER] 800 mg PO QPM 03/23/18 Objective - Vital Signs/Intake & Output Reviewed Vital Signs: Yes Vital Signs: Vital Signs x48h Temp Pulse Resp BP Pulse Ox 03/28/18 13:27 36.4 C L 22 123/72 107 H 03/28/18 08:00 36.8 C 72 21 112/56 L 93 Intake & Output: Intake & Output 03/25/18 03/26/18 03/27/18 03/28/18 23:59 23:59 23:59 23:59 Intake Total 2200 1270 1706 650 Output Total 2850 7468 4490 4130 Balance -650 -7332 -4703 -1800 - Objective General Appearance: positive: No acute distress, Alert. negative: Lethargic Eyes Bilateral: positive: Normal inspection, PERRL, No lid inflammation, Conjunctivae nml ENT: positive: ENT inspection nml, Pharynx nml, No signs of dehydration. negative: Purulent nasal drainage, Pharyngeal erythema, Oral lesions Neck: positive: Nml inspection, Thyroid nml, No JVD, Trachea midline. negative : Thyromegaly, Lymphadenopathy (R), Lymphadenopathy (L), Stiff neck, Swelling/ bruising, Tracheal deviation Respiratory: positive: Chest non-tender, No respiratory distress, Breath sounds nml. negative: Wheezes, Rales, Rhonchi Cardiovascular: positive: Regular rate & rhythm, No murmur, No gallop. negative : Irregularly irregular, Extrasystoles, Tachycardia, Bradycardia, JVD present, Systolic murmur, Diastolic murmur Peripheral Pulses: 2+ Radial (R), 2+ Radial (L), 2+ Dorsalis pedis (R), 2+ Dorsalis pedis (L) Abdomen: positive: Non-tender, No organomegaly, Nml bowel sounds, No distention. negative: Tenderness, Guarding, Rebound Back: positive: Nml inspection. negative: CVA tenderness (R), CVA tenderness (L ) Skin: positive: Color nml, No rash, Warm, Dry, Puncture wound. negative: Cyanosis, Diaphoresis, Pallor Extremities: positive: Non-tender. negative: Calf tenderness, Joint swelling, Marlene's sign/cords Neurologic/Psychiatric: positive: Sensation nml. negative: Weakness, Sensory loss, Facial droop, Slurred/abnml speech - Lab Results Fish Bones: 03/28/18 08:55 03/28/18 08:55 Other Labs: Lab Results x24hrs 03/28/18 03/28/18 Range/Units 08:55 08:55 WBC 7.2 (4.8-10.8) x10^3/uL RBC 3.71 L (4.70-6.10) 10^6/uL Hgb 11.6 L (14.0-18.0) g/dL Hct 34.6 L (42.0-52.0) % MCV 93.1 (80.0-94.0) fL MCH 31.2 H (27.0-31.0) pg MCHC 33.5 (32.0-36.0) g/dL RDW 14.1 (12.0-15.0) % Plt Count 235 (130-450) 10^3/uL MPV 8.0 (7.4-11.4) fL Neut # (Auto) 5.0 (1.5-6.6) 10^3/uL Lymph # (Auto) 1.5 (1.5-3.5) 10^3/uL [place] # (Auto) 0.5 (0.0-1.0) 10^3/uL Eos # (Auto) 0.2 (0.0-0.7) 10^3/uL Baso # (Auto) 0.0 (0.0-0.1) 10^3/uL Absolute Nucleated RBC 0.00 x10^3/uL Nucleated RBC % 0.0 /100WBC Sodium 137 (135-145) mmol/L Potassium 4.1 (3.5-5.0) mmol/L Chloride 99 L (101-111) mmol/L Carbon Dioxide 29 (21-32) mmol/L Anion Gap 9.0 (6-13) BUN 11 (6-20) mg/dL Creatinine 0.9 (0.6-1.2) mg/dL Estimated GFR (MDRD) 97 (>89) Glucose 118 H (70-100) mg/dL Calcium 9.3 (8.5-10.3) mg/dL Total Bilirubin 0.9 (0.2-1.0) mg/dL AST 55 H (10-42) IU/L ALT 77 H (10-60) IU/L Alkaline Phosphatase 72 (42-121) IU/L Total Protein 7.0 (6.7-8.2) g/dL Albumin 3.2 (3.2-5.5) g/dL Globulin 3.8 (2.1-4.2) g/dL Albumin/Globulin Ratio 0.8 L (1.0-2.2) ABX Reporting Has patient been on IV antibiotics over the past 48 hours?: Yes Assessment/Plan - Problem List (1) Knee injury Impression: 03/28, continue Keflex PO. injury recover is improved, follow up orthopedics 03/27, discuss with Dr. Strong, switch to PO antibiotics. Injury cover is improved 03/26discuss with Dr. Pinto, continue antibiotics continue antibiotics, follow up surgeon minimal drainage. pt has good distal sensation and motion, and good capillary refill. pt state he had a good pain control discuss with Dr Pinto for Clindamycin for pt, add Probiotics. Dr. Pinto is managing the patient's pain management and antibiotics, follow up The patient had the knee injury surgically repaired by Dr. Pinto. She is managing the patient's pain management and antibiotics. The patient's toes are warm with good capillary refill. The dressing is dry and intact with minimal drainage. (2) Schizophrenia Impression: 03/28, pt seems more cooperative, continue new medication regimen recommended by tele psychiatrist contacted DCR, inpt to psych unit is pending continue to monitor EPS EKG as needed when administration of Haldol today pt is more calm down. start the medication recommended by tele psychiatrist. pt continue to have psychosis issue. tele psychiatrist assessed pt, recommendation is pending, will follow up restart Abilify,Seroquel, and trazodone, closely monitor Patient has a history of schizophrenia, ADHD, PTSD, and claustrophobia. resume his home medication, closely monitor Patient has a history of schizophrenia, ADHD, PTSD, and claustrophobia. He has been restarted on his Abilify, Seroquel, and trazodone. He is uncooperative and oppositional and a poor historian. Qualifiers: Encounter type: initial encounter Laterality: left Qualified Code(s): S89.92XA - Unspecified injury of left lower leg, initial encounter
--- NOTE | 2018-03-28 17:48 | Discharge Plan ---
Discharge Plan Disposition: Home, Self Care Condition: Poor Prescriptions: ARIPiprazole [Aripiprazole] 15 mg PO DAILY #30 tablet cephALEXin [Keflex] 500 mg PO BID #40 capsule Haloperidol Oral Soln [Haldol Oral Soln] 5 mg PO BID PRN #20 udc PRN Reason: Agitation QUEtiapine [SEROquel] 300 mg PO BID #120 tablet Diet: Regular Activity Restrictions: Activity as Tolerated Shower Restrictions: No (fall precaution) Instruction Topics: Wound Care, Wound Care Dc, Wound Dressing Steps Additional Instructions or Follow Up instructions: You may follow up your PCP in two weeks, follow up your psychiatrist in one week , continue knee immobilizer for 7-10 days, antibiotics for 10 days, weightbearing as tolerated in knee brace, follow up in orthopedic clinic at [phone] in one week. Should your symptoms return or worsen, you may present ER or call 911 for help. No Smoking: If you smoke, Please STOP! Call for help. Follow-up with: Cherelle Vieyra PA-C [Primary Care Provider] -
[2018-03-28] MEDS ORDERED: cephALEXin 250 MG CAPSULE PO STA (18:02)
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
== END 2018-03-28 18:40 | disposition home or self-care (01) | DRG 909 ==
LOC: EDUNIT# → ED 09:53 → SUPCPDRO 09:53 → SDS 13:30 → MS3 16:18
PROVIDERS: ADMIT Orthopaedic Surgery; ATTEND Nurse Practitioner Gerontology
PROC: 0JDP0ZZ Extraction of Left Lower Leg Subcutaneous Tissue and Fascia, Open Approach (ICD-10-PCS; principal; 2018-03-22 14:00)
DX: S81.022A Laceration with foreign body, left knee, initial encounter (principal); V28.0XXA Motorcycle driver injured in noncollision transport accident in nontraffic accident, initial encounter; Z86.14 Personal history of Methicillin resistant Staphylococcus aureus infection; Z72.0 Tobacco use; R00.1 Bradycardia, unspecified; F20.9 Schizophrenia, unspecified; F90.9 Attention-deficit hyperactivity disorder, unspecified type
CPT/HCPCS: 36415; 70450; 71260; 72125; 74177; 80048; 80053; 83735; 85025; 85027; 86850; 86900; 86901; 87640; 96361; 96374; 96375; 96376; 99283; 99284

== ENCOUNTER 2018-04-26 12:04 | Emergency (ER) | payer MEDICAID, OTHER ==
--- NOTE | 2018-04-26 13:23 | ED Physician Documentation ---
PD HPI WOUND RECHECK - Stated complaint Stated Complaint: LEFT LEG PX/POST OP - Chief complaint Chief Complaint: Wound - Histroy obtained from History obtained from: Patient - History of Present Illness Location: Left Lower Extremity Timing - onset: How many months ago (1 month ago with large laceration that was closed surgically and has had ongoing treatment. Got the last of the vee out 3 days ago.) Associated symptoms: Redness, Swelling, Drainage (yesterday, from central part of the wound), Pain (since the injury). No: Fever Similar symptoms before: Has not had sx before Recently seen: Clinic (3 days ago had vee removed. And noted drainage of yellow to white fluid yesterday) Review of Systems Constitutional: denies: Fever, Chills, Myalgias GI: denies: Nausea, Vomiting, Diarrhea PD PAST MEDICAL HISTORY - Past Medical History Cardiovascular: None Respiratory: Asthma Endocrine/Autoimmune: None GI: Ulcers : None HEENT: None Psych: Schizophrenia, ADD/ADHD, Post traumatic stress disorder, Claustrophobia, Other Musculoskeletal: None Derm: None - Past Surgical History Past Surgical History: Yes General: Hiatal hernia repair Ortho: ACL reconstruction HEENT: Tonsil/Adenoidectomy Derm: Skin cancer surgery - Present Medications Home Medications: Ambulatory Orders Medication Instructions Recorded Confirmed Cholecalciferol (Vitamin D3) 4,000 unit PO DAILY 03/23/18 03/23/18 [Vitamin D3] ARIPiprazole [Aripiprazole] 15 mg PO DAILY #30 tablet 03/28/18 Haloperidol Oral Soln [Haldol Oral 5 mg PO BID PRN #20 udc 03/28/18 Soln] QUEtiapine [SEROquel] 300 mg PO BID #120 tablet 03/28/18 cephALEXin [Keflex] 500 mg PO BID #40 capsule 03/28/18 traZODone [Desyrel] 50 mg PO DAILY PRN #30 tablet 03/28/18 Doxycycline Monohydrate 100 mg PO BID #14 tablet 04/26/18 HYDROcod/ACETAM 5/325 [[place] 5/325] 1 tab PO Q6H PRN #12 tablet 04/26/18 Mupirocin 1 applic TP TID #15 oint...g. 04/26/18 Ondansetron HCl [Zofran] 4 mg PO Q6H PRN #20 tablet 04/26/18 - Allergies Allergies/Adverse Reactions: Allergies Allergy/AdvReac Type Severity Reaction Status Date / Time povidone-iodine Allergy Itching Verified 03/22/18 10:07 [From Betadine] soap [From Betadine] Allergy Itching Verified 03/22/18 10:07 - Social History Does the pt smoke?: No Smoking Status: Light tobacco smoker Does the pt drink ETOH?: No Does the pt have substance abuse?: No - Immunizations Immunizations are current?: No Immunizations: TDAP >10years/unknown - POLST Patient has POLST: No POLST Status: Full Code PD ED PE NORMAL - Vitals Vital signs reviewed: Yes - General General: Alert and oriented X 3, No acute distress, Well developed/nourished, Other (a bit anxious but cooperative) - Neck Neck: Supple, no meningeal sign, No adenopathy - Cardiac Cardiac: RRR, No murmur - Respiratory Respiratory: Clear bilaterally - Derm Derm: Normal color, Warm and dry - Extremities Extremities: No edema, No calf tenderness / cord, Other (left knee with large healing wound. Central portion with some dried, hard skin c/w likely nonviable. It is still attached. No fluid under at this time. No purulence. There is some surround redness around wound in middle portion. ) Results - Vitals Vitals: Vital Signs - 24 hr 04/26/18 04/26/18 12:17 14:04 Temperature 36.6 C 36.6 C Heart Rate 74 59 L Respiratory 17 15 Rate Blood Pressure 124/66 121/72 O2 Saturation 99 100 Oxygen O2 Source Room air PD MEDICAL DECISION MAKING - ED course Complexity details: considered differential (no calf tenderness nor lower leg edema to suggest DVT. Having pain around the wound site, and had some draiange. The central part of the skin wound is dark and dried, likely nonviable tissue, with fluid under. No fluid now. Can Rx with abx in case of infection as there is some surrounding redness and tender. Add topical Mupriocin as well. ), d/w patient - Sepsis Event Vital Signs: Vital Signs - 24 hr 04/26/18 04/26/18 12:17 14:04 Temperature 36.6 C 36.6 C Heart Rate 74 59 L Respiratory 17 15 Rate Blood Pressure 124/66 121/72 O2 Saturation 99 100 Oxygen O2 Source Room air Departure - Departure Disposition: 01 Home, Self Care Clinical Impression: Encounter for post surgical wound check Condition: Stable Record reviewed to determine appropriate education?: Yes Instructions: ED Wound Care Prescriptions: Doxycycline Monohydrate 100 mg PO BID #14 tablet HYDROcod/ACETAM 5/325 [[place] 5/325] 1 tab PO Q6H PRN #12 tablet PRN Reason: Pain Mupirocin 1 applic TP TID #15 oint...g. Ondansetron HCl [Zofran] 4 mg PO Q6H PRN #20 tablet PRN Reason: Nausea / Vomiting Comments: The central portion of the skin looks like it might off over time. The fluid that came out from underneath after the vee were removed yesterday is reasonable as a liquefying of the fatty tissue underneath. There is no obvious drainage today. There is some redness around it though suggesting the possibility of infection. I think the wound is a little dry and hard and needs some antibiotic ointment. Use mupirocin topical antibiotic to the wound lightly 2-3 times a day and then dressing over it. Start mobilizing the knee as directed by orthopedics as it does need to start loosening up the scar tissue. For concern of early infection, will use doxycycline twice daily at least until follow-up on the as planned. Ondansetron if needed for nausea and Tylenol or hydrocodone if needed for pains. Return if worsening sooner. Discharge Date/Time: 04/26/18 14:06
[2018-04-26] MEDS ORDERED: MUPIROCIN 2% OINT 1 GM TOP STA (13:45)
[2018-04-26] MEDS ORDERED: ONDANSETRON ODT 4 MG TABLET TL STA (13:45)
[2018-04-26] MEDS ORDERED: HYDROcod/ACETAM 5/325 MG TABLET PO STA (13:45)
[2018-04-26] MEDS ORDERED: DOXYCYCLINE 100 MG TABLET PO STA (13:45)
[2018-04-26 14:05] VITALS: BP 121/72
== END 2018-04-26 14:06 | disposition home or self-care (01) ==
LOC: ED 12:04
DX: M79.662 Pain in left lower leg (principal); Z48.817 Encounter for surgical aftercare following surgery on the skin and subcutaneous tissue
CPT/HCPCS: 99283; A9270; Q0162

== ENCOUNTER 2018-07-21 16:57 | Emergency (ER) | payer OTHER, MEDICAID ==
[2018-07-21 17:35] LABS: BASOPHILS % (AUTO) 0.5 %; EOSINOPHILS % (AUTO) 0.4 %; HGB - HEMOGLOBIN 12.4 g/dL (14.0-18.0); LYMPHOCYTES # (AUTO) 1.7 10^3/uL (1.5-3.5); LYMPHOCYTES % (AUTO) 19.3 %; MEAN CORPUSCULAR HEMOGLOBIN 30.4 pg (27.0-31.0); MEAN CORPUSCULAR HGB CONC 32.1 g/dL (32.0-36.0); MEAN CORPUSCULAR VOLUME 94.6 fL (80.0-94.0); MEAN PLATELET VOLUME 7.9 fL (7.4-11.4); MONOCYTES # (AUTO) 0.9 10^3/uL (0.0-1.0); MONOCYTES % (AUTO) 9.9 %; NEUTROPHILS # (AUTO) 6.1 10^3/uL (1.5-6.6); NEUTROPHILS % (AUTO) 69.9 %; PLT - PLATELET COUNT 213 10^3/uL (130-450); RED BLOOD COUNT 4.08 10^6/uL (4.70-6.10); RED CELL DISTRIBUTION WIDTH 14.6 % (12.0-15.0); WHITE BLOOD COUNT 8.8 x10^3/uL (4.8-10.8)
[2018-07-21 18:02] LABS: ALBUMIN 4.4 g/dL (3.2-5.5); ALBUMIN/GLOBULIN RATIO 1.8 (1.0-2.2); BILIRUBIN,TOTAL 1.7 mg/dL (0.2-1.0); CALCIUM 9.3 mg/dL (8.5-10.3); CREATININE 0.8 mg/dL (0.6-1.2); TOTAL PROTEIN 6.9 g/dL (6.7-8.2)
--- NOTE | 2018-07-21 18:02 | ED Physician Documentation ---
History of Present Illness - Stated complaint Stated Complaint: FIT FOR HALF-WAY - Chief complaint Chief Complaint: General - Additonal information Additional information: 33-year-old male was brought to the emergency department for evaluation for incarceration. The patient was tased and the officers wanted to make sure that there was no taser on the patient's person. The taser was stuck in the patient's clothing and was not penetrated in his skin. The patient reports using drugs. The patient has a history of a left knee wound which in termittently gets exposed to gravel due to his lifestyle.. The patient is denying head injury, neck injury, chest injury or acute medical complaints. The patient is quite uncooperative and verbally abusive at times. The patient does not really provide any adequate history and is mostly uncooperative. Review of Systems Unable to obtain: Uncooperative Constitutional: denies: Fever Cardiac: denies: Chest pain / pressure GI: denies: Abdominal Pain PD PAST MEDICAL HISTORY - Past Medical History Cardiovascular: None Respiratory: Asthma Neuro: None Endocrine/Autoimmune: None GI: Ulcers : None HEENT: None Psych: Schizophrenia, ADD/ADHD, Post traumatic stress disorder, Claustrophobia, Other Musculoskeletal: Gout Derm: None - Past Surgical History Past Surgical History: Yes General: Hiatal hernia repair Ortho: ACL reconstruction HEENT: Tonsil/Adenoidectomy Derm: Skin cancer surgery - Present Medications Home Medications: Ambulatory Orders Medication Instructions Recorded Confirmed Cephalexin [Keflex] 500 mg PO Q6H #40 capsule 07/21/18 - Allergies Allergies/Adverse Reactions: Allergies Allergy/AdvReac Type Severity Reaction Status Date / Time povidone-iodine Allergy Itching Verified 03/22/18 10:07 [From Betadine] soap [From Betadine] Allergy Itching Verified 03/22/18 10:07 - Social History Does the pt smoke?: No Smoking Status: Never smoker Does the pt drink ETOH?: No Does the pt have substance abuse?: No - Immunizations Immunizations are current?: No Immunizations: TDAP >10years/unknown - POLST Patient has POLST: No POLST Status: Full Code PD ED PE NORMAL - General General: Alert and oriented X 3, Other (The patient is disheveled, poorly groomed but appears to be in no acute distress) - HEENT HEENT: Atraumatic, PERRL, EOMI - Neck Neck: Supple, no meningeal sign - Cardiac Cardiac: RRR, Strong equal pulses - Respiratory Respiratory: No respiratory distress - Abdomen Abdomen: Non tender - Extremities Extremities: No deformity, No edema - Neuro Neuro: Alert and oriented X 3, No motor deficit, Normal speech PD ED PE EXPANDED - Derm SKin visual: 1 - laceration (The patient has a chronic wound over his left knee, there is debris within the wound and surrounding erythema. The patient has full active range of motion of the bilateral hips, knees and ankles. The patient has normal dorsalis pedis pulses and normal cap refill. The patient has multiple areas of pick burris on his bilateral lower extremities and evidence of prior needle burris.) - Psych Psych: Intoxicated / AOB, Combative. No: Suicidal, Tearful, Withdrawn Results - Vitals Vitals: Vital Signs - 24 hr 07/21/18 07/21/18 16:58 19:40 Temperature 36.7 C 36.8 C Heart Rate 91 80 Respiratory 18 16 Rate Blood Pressure 127/73 133/69 H O2 Saturation 98 96 Oxygen O2 Source Room air - Labs Labs: Laboratory Tests 07/21/18 07/21/18 07/21/18 17:27 17:27 17:27 WBC 8.8 RBC 4.08 L Hgb 12.4 L Hct 38.6 L MCV 94.6 H MCH 30.4 MCHC 32.1 RDW 14.6 Plt Count 213 MPV 7.9 Neut # (Auto) 6.1 Lymph # (Auto) 1.7 Burt # (Auto) 0.9 Eos # (Auto) 0.0 Baso # (Auto) 0.0 Absolute Nucleated RBC 0.00 Nucleated RBC % 0.0 Sodium 136 Potassium 3.4 L Chloride 101 Carbon Dioxide 27 Anion Gap 8.0 BUN 23 H Creatinine 0.8 Estimated GFR (MDRD) 110 Glucose 105 H Lactic Acid 1.4 Calcium 9.3 Total Bilirubin 1.7 H AST 35 ALT 24 Alkaline Phosphatase 63 Total Creatine Kinase 571 H Total Protein 6.9 Albumin 4.4 Globulin 2.5 Albumin/Globulin Ratio 1.8 Lipase 22 - Rads (name of study) XR knee Radiology: Final report received (IMPRESSION: No acute osseous abnormality demonstrated. No effusion identified), See rad report PD MEDICAL DECISION MAKING - ED course ED course: The patient's wound on his left knee appears to have debris within it, we attempted to debride the wound for the patient. During the cleaning process as we began to clean up the wound and start to remove debris the patient became uncooperative and refused any further intervention. The offered to continue cleaning to help manage the wound and the patient adamantly refused. The wound was dressed with Neosporin. The patient was given a dose of Keflex. The patient will be discharged into the custody of the police department. I have advised that they continue to attempt wound management at the shelter. The patient appears stable at this point for incarceration and ongoing medical observation within the shelter. I recommended that they return the patient back to the emergency department immediately for any worsening or any concerns. Departure - Departure Disposition: 01 Home, Self Care Clinical Impression: Medical clearance for incarceration, Infected wound Condition: Good Instructions: ED Wound Care Follow-Up: Kenneth Sanchez MD [Primary Care Provider] - Within 1 week Prescriptions: Cephalexin [Keflex] 500 mg PO Q6H #40 capsule Comments: You have refused any further wound irrigation. Please dressed your wound with bacitracin twice daily. Please take your antibiotics as prescribed. Please return for any worsening or any concerns. Discharge Date/Time: 07/21/18 19:51
--- NOTE | 2018-07-21 18:50 | XRAY Report ---
Reason: infection Procedure Date: 07/21/2018 Accession Number: [id number] / [id number] Procedure: XR - Knee 3 View LT CPT Code: FULL RESULT: EXAM: LEFT KNEE RADIOGRAPHY EXAM DATE: 07/21/2018 05:50 PM. CLINICAL HISTORY: Left knee pain. COMPARISON: KNEE 2 VIEW LT 03/22/2018 1:45 PM. TECHNIQUE: 3 views. FINDINGS: Bones: Normal. No fractures or bone lesions. Joints: Minor degenerative changes are seen in the medial and patellofemoral compartments. No effusion is demonstrated. Soft Tissues: Small scattered gravel/debris is seen along the medial and lateral aspect of the proximal tibia and fibula. There is resolution of previous gravel/debris along the anterior knee. IMPRESSION: No acute osseous abnormality demonstrated. No effusion identified. [facility]
[2018-07-21] MEDS ORDERED: BACITRACIN OINT TOP STA (19:06)
[2018-07-21] MEDS ORDERED: cephALEXin 250 MG CAPSULE PO STA (19:06)
[2018-07-21 19:49] VITALS: BP 133/69
== END 2018-07-21 19:51 | disposition home or self-care (01) ==
LOC: ED 16:57
DX: Z02.89 Encounter for other administrative examinations (principal); S81.012A Laceration without foreign body, left knee, initial encounter; L08.9 Local infection of the skin and subcutaneous tissue, unspecified; X58.XXXA Exposure to other specified factors, initial encounter
CPT/HCPCS: 36415; 73562; 80053; 82550; 83605; 83690; 85025; 99283; A9270

== ENCOUNTER 2019-08-01 19:22 | Outpatient (CLI) | payer MEDICAID | END 2019-08-01 19:23 | disposition EMS.NT | LOC: EMS 19:22 | PROVIDERS: ATTEND Surgery | DX: Z76.89 Persons encountering health services in other specified circumstances (principal) ==